=== PATIENT | female | born 1975 | race Caucasian/White ===

== ENCOUNTER → 2017-02-01 | Outpatient (REF) | payer BC ==
[~2017-02-01] MED LIST: ACET65TA; BCP; CORTISSUSP OTIC; CYCL10TA PO; EXCETAB80 PO; HYDR-3713 PO; HYDR25T PO; IBUP200T45 PO; JOLETAB PO; MECL25CH PO; MOTRIN600 PO; OMEP40CA2 PO; PAME50CA PO; TIZA2CAP3 PO; TOPA50TA7 PO; TOPI50TA; VITA20008 PO; ZANT150T
[2017-02-01 12:32] LABS: INR 0.96
[2017-02-01 12:37] LABS: MEAN CORPUSCULAR HEMOGLOBIN 30.6 pg (27.0-33.0); MEAN CORPUSCULAR HGB CONC 33.4 g/dl (32.0-36.5); MEAN CORPUSCULAR VOLUME 91.5 fl (80.0-96.0); RED CELL DISTRIBUTION WIDTH 12.6 % (11.5-14.5); WHITE BLOOD COUNT 8.2 K/mm3 (4.0-10.0)
[2017-02-01 12:53] LABS: ALBUMIN 3.6 GM/DL (3.2-5.2); ALBUMIN/GLOBULIN RATIO 1.16 (1.00-1.93); BILIRUBIN,DIRECT 0.1 MG/DL (0.0-0.2); BILIRUBIN,TOTAL 0.4 MG/DL (0.2-1.0); TOTAL PROTEIN 6.7 GM/DL (6.4-8.2)
== END ==
LOC: M LABDRAW1 11:47
PROVIDERS: ATTEND Physician Assistant Medical
DX: D37.6 Neoplasm of uncertain behavior of liver, gallbladder and bile ducts (principal)

== ENCOUNTER → 2017-02-14 | Outpatient (REF) | payer BC ==
[2017-02-14 12:14] LABS: ALBUMIN 3.8 GM/DL (3.2-5.2); ALBUMIN/GLOBULIN RATIO 1.27 (1.00-1.93); ALKALINE PHOSPHATASE 149 U/L (45-117); ALT/SGPT 70 U/L (12-78); ANION GAP 8 MEQ/L (8-16); AST/SGOT 40 U/L (15-37); BILIRUBIN,TOTAL 0.4 MG/DL (0.2-1.0); BLOOD UREA NITROGEN 12 MG/DL (7-18); CALCIUM LEVEL 9.1 MG/DL (8.5-10.1); CARBON DIOXIDE LEVEL 26 MEQ/L (21-32); CHLORIDE LEVEL 107 MEQ/L (98-107); CREATININE FOR GFR 0.87 MG/DL (0.55-1.02); GLOMERULAR FILTRATION RATE > 60.0 (>58); GLUCOSE, FASTING 116 MG/DL (70-105); POTASSIUM SERUM 4.2 MEQ/L (3.5-5.1); SODIUM LEVEL 141 MEQ/L (136-145); TOTAL PROTEIN 6.8 GM/DL (6.4-8.2)
[2017-02-14 12:26] LABS: FOLATE 14.8 NG/ML; VITAMIN B12 LEVEL 1083 PG/ML
== END ==
LOC: M SFHCPLAZ 08:52
PROVIDERS: ATTEND Nurse Practitioner Family
DX: R74.8 Abnormal levels of other serum enzymes (principal); E55.9 Vitamin D deficiency, unspecified; E53.8 Deficiency of other specified B group vitamins

== ENCOUNTER 2017-07-10 11:34 | Outpatient (CLI) | payer BC, MEDICAID, OTHER ==
[~2017-07-10] VITALS: Ht 157.5 cm; Wt 95.3 kg
[~2017-07-10 11:34] MED LIST changes: +CALCTAB97 PO; +DRIS50002 PO; +HYDR-3363 PO; -HYDR25T PO; +MAGN400C2 PO; +MECL1CHW2 PO; -MECL25CH PO; -TOPA50TA7 PO; +TOPA50TA8 PO; +VITA10002 PO
[2017-07-10] MEDS ORDERED: NS 1,000 ML IV ONE (11:45)
--- NOTE | 2017-07-10 13:14 | ROOR ---
Patient Name: Holly Briceño Procedure Date: 07/10/2017 12:49 PM Date of : 1975 Age: 41 Room: [facility] Gender: Female Note Status: Finalized Procedure: Upper GI endoscopy Indications: Surveillance for malignancy due to personal history of Dinero's esophagus Providers: Lemuel HOLM MD Referring MD: Maria De Jesus Cross NP Requesting Provider: Medicines: Monitored Anesthesia Care Complications: No immediate complications. Procedure: Pre-Anesthesia Assessment: - The heart rate, respiratory rate, oxygen saturations, blood pressure, adequacy of pulmonary ventilation, and response to care were monitored throughout the procedure. The Endoscope was introduced through the mouth, and advanced to the second part of duodenum. The upper GI endoscopy was accomplished without difficulty. The patient tolerated the procedure well. Findings: There were esophageal mucosal changes consistent with short-segment Dinero's esophagus present in the lower third of the esophagus. The maximum longitudinal extent of these mucosal changes was 2 cm in length. Mucosa was biopsied with a cold forceps for histology randomly at intervals of 1 cm from 35 to 37 cm from the incisors. A total of 2 specimen bottles were sent to pathology. The exam of the esophagus was otherwise normal. The entire examined stomach was normal. The examined duodenum was normal. A small hiatal hernia was present. Impression: - Esophageal mucosal changes consistent with short-segment Dinero's esophagus. Biopsied. - Normal stomach with a small hiatal hernia. - Normal examined duodenum. Recommendation: - Use a proton pump inhibitor PO BID indefinitely. - (for barretts esophagus) Lemuel Holm MD Lemuel HOLM MD 07/10/2017 1:14:16 PM This report has been signed electronically. Number of Addenda: 0 Note Initiated On: 07/10/2017 12:49 PM Estimated Blood Loss: Estimated blood loss: none.
[2017-07-10] MEDS ORDERED: LIDOCAINE 2% INJ 100 MG/5 ML SDV (FOR ANES.) As Ordered ONE (13:34)
[2017-07-10] MEDS ORDERED: PROPOFOL 500 MG/50 ML VIAL As Ordered ONE (13:34)
[2017-07-10 13:48] VITALS: BP 120/86
== END 2017-07-10 13:50 | disposition home or self-care (01) ==
LOC: M OPP 11:34
PROVIDERS: ATTEND Internal Medicine Gastroenterology
DX: K22.70 Barrett's esophagus without dysplasia (principal); K44.9 Diaphragmatic hernia without obstruction or gangrene; G40.919 Epilepsy, unspecified, intractable, without status epilepticus

== ENCOUNTER → 2017-09-12 | Outpatient (REF) | payer OTHER ==
[2017-09-12 12:09] LABS: MEAN CORPUSCULAR HEMOGLOBIN 30.1 pg (27.0-33.0); MEAN CORPUSCULAR HGB CONC 33.1 g/dl (32.0-36.5); PLATELET COUNT, AUTOMATED 301 10^3/uL (150-450); RED CELL DISTRIBUTION WIDTH 12.7 % (11.5-14.5); WHITE BLOOD COUNT 8.4 10^3/uL (4.0-10.0)
[2017-09-12 12:16] LABS: ALBUMIN 3.8 GM/DL (3.2-5.2); ALBUMIN/GLOBULIN RATIO 1.31 (1.00-1.93); ALKALINE PHOSPHATASE 130 U/L (45-117); ALT/SGPT 82 U/L (12-78); ANION GAP 8 MEQ/L (8-16); AST/SGOT 33 U/L (7-37); BILIRUBIN,TOTAL 0.3 MG/DL (0.2-1.0); BLOOD UREA NITROGEN 8 MG/DL (7-18); CALCIUM LEVEL 9.3 MG/DL (8.5-10.1); CARBON DIOXIDE LEVEL 25 MEQ/L (21-32); CHLORIDE LEVEL 108 MEQ/L (98-107); CHOLESTEROL LEVEL 245 MG/DL (<200); CREATININE FOR GFR 0.73 MG/DL (0.55-1.02); GLOMERULAR FILTRATION RATE > 60.0 (>58); GLUCOSE, FASTING 109 MG/DL (70-105); POTASSIUM SERUM 4.4 MEQ/L (3.5-5.1); SODIUM LEVEL 141 MEQ/L (136-145); TOTAL PROTEIN 6.7 GM/DL (6.4-8.2); TRIGLYCERIDES LEVEL 199 MG/DL (<150)
[2017-09-12 12:18] LABS: VITAMIN B12 LEVEL 1055 PG/ML
[2017-09-12 12:19] LABS: FOLATE 10.8 NG/ML
[2017-09-12 13:55] LABS: ERYTHROCYTE SEDIMENTATION RATE 6 mm/hr (0-20)
== END ==
LOC: M SFHCPLAZ 10:04
PROVIDERS: ATTEND Nurse Practitioner Family
DX: E53.8 Deficiency of other specified B group vitamins (principal); K21.0 Gastro-esophageal reflux disease with esophagitis; E55.9 Vitamin D deficiency, unspecified; M77.8 Other enthesopathies, not elsewhere classified

== ENCOUNTER 2017-10-16 12:48 | Outpatient (RCR) | payer OTHER | END 2017-10-28 | LOC: M OT 10-25 11:15 | DX: Z51.89 Encounter for other specified aftercare (principal); M77.8 Other enthesopathies, not elsewhere classified | CPT/HCPCS: 97165 ==

== ENCOUNTER → 2017-10-30 | Outpatient (CLI) | payer OTHER | LOC: M LRY 15:54 | DX: M25.552 Pain in left hip (principal) | CPT/HCPCS: 72190 ==

== ENCOUNTER 2018-01-13 16:59 | Emergency (ER) | payer OTHER | END 2018-01-13 18:36 | disposition home or self-care (01) | LOC: M ED 16:59 | DX: M77.11 Lateral epicondylitis, right elbow (principal); M25.721 Osteophyte, right elbow; G43.909 Migraine, unspecified, not intractable, without status migrainosus; R56.9 Unspecified convulsions; Z79.899 Other long term (current) drug therapy | CPT/HCPCS: 73080 ==

== ENCOUNTER → 2018-06-20 | Outpatient (REF) | payer BC ==
[2018-06-20 16:03] LABS: HEMATOCRIT 45.2 % (36.0-47.0); HEMOGLOBIN 15.4 g/dl (12.0-15.5); MEAN CORPUSCULAR HGB CONC 34.1 g/dl (32.0-36.5); MEAN CORPUSCULAR VOLUME 91.1 fl (80.0-96.0); PLATELET COUNT, AUTOMATED 249 10^3/uL (150-450); RED BLOOD COUNT 4.96 10^6/uL (4.00-5.40); RED CELL DISTRIBUTION WIDTH 12.7 % (11.5-14.5); WHITE BLOOD COUNT 12.2 10^3/uL (4.0-10.0)
[2018-06-20 16:16] LABS: ALBUMIN 3.8 GM/DL (3.2-5.2); ALBUMIN/GLOBULIN RATIO 1.12 (1.00-1.93); ALKALINE PHOSPHATASE 122 U/L (45-117); ALT/SGPT 16 U/L (12-78); ANION GAP 6 MEQ/L (8-16); AST/SGOT 7 U/L (7-37); BILIRUBIN,TOTAL 0.2 MG/DL (0.2-1.0); BLOOD UREA NITROGEN 7 MG/DL (7-18); CALCIUM LEVEL 9.2 MG/DL (8.5-10.1); CARBON DIOXIDE LEVEL 28 MEQ/L (21-32); CHLORIDE LEVEL 110 MEQ/L (98-107); CREATININE FOR GFR 0.68 MG/DL (0.55-1.30); GLOMERULAR FILTRATION RATE > 60.0 (>58); GLUCOSE, FASTING 98 MG/DL (70-100); SODIUM LEVEL 144 MEQ/L (136-145); TOTAL PROTEIN 7.2 GM/DL (6.4-8.2)
[2018-06-20 16:23] LABS: TOTAL 25(OH) VITAMIN D 12.3 NG/ML (30.0-100.0)
[2018-06-20 16:24] LABS: FOLATE 6.1 NG/ML; VITAMIN B12 LEVEL 349 PG/ML
== END ==
LOC: M SFHCPLAZ 14:15
DX: R74.8 Abnormal levels of other serum enzymes (principal); E55.9 Vitamin D deficiency, unspecified; E53.8 Deficiency of other specified B group vitamins
CPT/HCPCS: 82746

== ENCOUNTER 2018-10-14 16:36 | Emergency (ER) | payer BC ==
[~2018-10-14] VITALS: Ht 160 cm; Wt 80.5 kg
[~2018-10-14 16:36] MED LIST changes: -DRIS50002 PO; +DRIS50003 PO; +IBUP-1022 PO; +TIZA2CAP PO; -TIZA2CAP3 PO
[2018-10-14] MEDS ORDERED: NS 1,000 ML IV ONE (19:00)
[2018-10-14] MEDS ORDERED: KETOROLAC 30 MG/ML VIAL (J1885) IV ONE (19:00)
[2018-10-14 19:16] LABS: HEMATOCRIT 45.1 % (36.0-47.0); HEMOGLOBIN 15.2 g/dl (12.0-15.5); MEAN CORPUSCULAR HEMOGLOBIN 31.3 pg (27.0-33.0); MEAN CORPUSCULAR HGB CONC 33.7 g/dl (32.0-36.5); PLATELET COUNT, AUTOMATED 281 10^3/uL (150-450); RED BLOOD COUNT 4.85 10^6/uL (4.00-5.40); WHITE BLOOD COUNT 11.8 10^3/uL (4.0-10.0)
[2018-10-14 19:28] LABS: INR 0.9; PROTHROMBIN TIME 12.3 SECONDS (12.1-14.4)
[2018-10-14 19:29] LABS: PARTIAL THROMBOPLASTIN TIME 30.6 SECONDS (25.4-37.6)
[2018-10-14 19:33] LABS: HCG, SERUM QUALITATIVE NEGATIVE (NEGATIVE)
[2018-10-14 19:42] LABS: ALT/SGPT 18 U/L (12-78); BILIRUBIN,DIRECT 0.1 MG/DL (0.0-0.2); BILIRUBIN,TOTAL 0.3 MG/DL (0.2-1.0); BLOOD UREA NITROGEN 12 MG/DL (7-18); CALCIUM LEVEL 9.7 MG/DL (8.5-10.1); CARBON DIOXIDE LEVEL 27 MEQ/L (21-32); CHLORIDE LEVEL 108 MEQ/L (98-107); CK-MB VALUE MASS < 1.0 NG/ML (<3.6); CPK CREATINE PHOSPHOKINASE 77 U/L (26-192); CREATININE FOR GFR 0.76 MG/DL (0.55-1.30); FREE T4 1.05 NG/DL (0.76-1.46); GLOMERULAR FILTRATION RATE > 60.0 (>58); GLUCOSE, FASTING 93 MG/DL (70-100); MAGNESIUM LEVEL 2.1 MG/DL (1.8-2.4); POTASSIUM SERUM 4.1 MEQ/L (3.5-5.1); SODIUM LEVEL 141 MEQ/L (136-145); TROPONIN I < 0.02 NG/ML (< 0.10)
[2018-10-14 19:45] LABS: ATYPICAL LYMPH 19 % (0-5); BASOPHILS 2 % (0-4); EOSINOPHILS 1 % (0-5); LYMPHOCYTES 20 % (16-52); MONOCYTES 8 % (0-8); NEUTROPHILS 50 % (35-75)
[2018-10-14 19:46] LABS: PLATELET ESTIMATE NORMAL (NORMAL)
--- NOTE | 2018-10-14 21:39 | REPVR ---
EXAM: CT Head Without Contrast EXAM DATE/TIME: 10/14/2018 7:49 PM CLINICAL HISTORY: 43 years old, female; Pain; Headache; Headache not specified; Additional info: Headache/smelling odor TECHNIQUE: Axial computed tomography images of the head/brain without contrast. All CT scans at this facility use at least one of these dose optimization techniques: automated exposure control; mA and/or kV adjustment per patient size (includes targeted exams where dose is matched to clinical indication); or iterative reconstruction. COMPARISON: MRI-Brain without Contrast 11/27/2012 2:15 PM FINDINGS: Brain: The white-pérez differentiation is preserved demonstrating no acute territorial type infarct. No acute intracranial hemorrhage is seen. No significant white matter disease is visualized. No intracranial mass effect. Midline shift: There is no midline shift. Ventricles: No ventriculomegaly. Bones/joints: The calvarium demonstrates no evidence for a depressed fracture. Sinuses: Normal as visualized. No acute sinusitis. Mastoid air cells: No mastoid effusion. Soft tissues: Normal. IMPRESSION: No acute intracranial abnormality. Electronically signed by: Tre Bunch On 10/14/2018 21:38:40 PM
[2018-10-14 22:20] VITALS: BP 116/56
== END 2018-10-14 22:28 | disposition home or self-care (01) ==
LOC: M ED 16:36
DX: R51 Headache (principal); K21.9 Gastro-esophageal reflux disease without esophagitis; K22.70 Barrett's esophagus without dysplasia; G40.909 Epilepsy, unspecified, not intractable, without status epilepticus; Z79.899 Other long term (current) drug therapy; F17.210 Nicotine dependence, cigarettes, uncomplicated
CPT/HCPCS: 70450; 80048; 80076; 81001; 82375; 82550; 82553; 83735; 84439; 84443; 84484; 84703; 85025; 85610; 85730; 96374; 99284; J1885

== ENCOUNTER 2018-10-15 12:00 | Outpatient (RCR) | payer BC | END 2018-10-28 | LOC: M PT 12:00 | PROVIDERS: ATTEND Psychiatry & Neurology Neurology | DX: Z51.89 Encounter for other specified aftercare (principal); G44.229 Chronic tension-type headache, not intractable; R51 Headache ==

== ENCOUNTER 2019-01-01 11:51 | Emergency (ER) | payer BC, SELFPAY ==
[~2019-01-01] VITALS: Ht 157.5 cm; Wt 78.5 kg
[2019-01-01] MEDS ORDERED: KETOROLAC 30 MG/ML VIAL (J1885) IV ONE (12:45)
[2019-01-01] MEDS ORDERED: NS 1,000 ML IV ONE (12:45)
[2019-01-01 13:27] LABS: BASO # 0.1 10^3/uL (0.0-0.2); BASO % 0.5 % (0.0-1.0); EOS # 0.1 10^3/uL (0.0-0.50); EOS % 0.7 % (0.0-3.0); HEMATOCRIT 47.2 % (36.0-47.0); HEMOGLOBIN 15.8 g/dl (12.0-15.5); LYMPH % 28.3 % (24.0-44.0); MEAN CORPUSCULAR HEMOGLOBIN 30.6 pg (27.0-33.0); MEAN CORPUSCULAR HGB CONC 33.5 g/dl (32.0-36.5); MEAN CORPUSCULAR VOLUME 91.3 fl (80.0-96.0); MONO # 0.8 10^3/uL (0.0-0.8); MONO % 7.9 % (0.0-5.0); NEUTROPHILS # 6.7 10^3/uL (1.8-7.7); NEUTROPHILS % 62.3 % (36.0-66.0); PLATELET COUNT, AUTOMATED 264 10^3/uL (150-450); RED BLOOD COUNT 5.17 10^6/uL (4.00-5.40); WHITE BLOOD COUNT 10.7 10^3/uL (4.0-10.0)
[2019-01-01 13:56] LABS: ALT/SGPT 14 U/L (12-78); BILIRUBIN,DIRECT < 0.1 MG/DL (0.0-0.2); BILIRUBIN,TOTAL 0.3 MG/DL (0.2-1.0); BLOOD UREA NITROGEN 14 MG/DL (7-18); CALCIUM LEVEL 8.9 MG/DL (8.5-10.1); CARBON DIOXIDE LEVEL 24 MEQ/L (21-32); CHLORIDE LEVEL 110 MEQ/L (98-107); CREATININE FOR GFR 0.66 MG/DL (0.55-1.30); GLOMERULAR FILTRATION RATE > 60.0 (>58); GLUCOSE, FASTING 78 MG/DL (70-100); LIPASE 111 U/L (73-393); POTASSIUM SERUM 3.6 MEQ/L (3.5-5.1); SODIUM LEVEL 139 MEQ/L (136-145); TOTAL PROTEIN 7.4 GM/DL (6.4-8.2)
--- NOTE | 2019-01-01 13:57 | REP ---
CT ABDOMEN AND PELVIS WITHOUT CONTRAST: CT abdomen and pelvis performed without oral or IV contrast. Sagittal and coronal reconstruction images are performed. Visualized lung bases demonstrate no evidence of acute infiltrate. In the right lobe of the liver just above the level of the gallbladder there is a suggestion of a liver mass which was seen on prior study of 08/23/2016, as well as on other prior studies. This appears to possibly have decreased in size possibly representing an adenoma. Spleen, adrenals, and pancreas are unremarkable. There is no renal, ureteral or bladder calculus. There is on hydroureteronephrosis. There is again an apparent cyst in the medial left kidney mid aspect. There is no abdominal aortic aneurysm. There is no adenopathy. There is no free air or free fluid. No bowel wall thickening is seen. There is no evidence of appendicitis. No pelvic mass is seen. Urinary bladder is not optimally distended and not well evaluated. IMPRESSION: No renal or ureteral calculus and no hydroureteronephrosis. Left renal cyst. Liver mass appears to have decreased in size as discussed above. This was seen on prior studies. This probably represents an adenoma which is decreasing in size. Electronically Signed by Sal Matthew MD 01/01/2019 11:26 P
[2019-01-01 15:36] VITALS: BP 129/60
--- NOTE | 2019-01-01 15:46 | REP ---
THORACIC SPINE: AP and lateral views of thoracic spine performed. Comparison is made with prior study of 02/04/2009. There is mild loss of height of T5 and T6 vertebral bodies unchanged. No new compression fracture is seen. There is no malalignment. I do not see significant disc space narrowing. There is slight curvature toward the right. The posterior elements appear intact. IMPRESSION: Mild loss of height of T5 and T6 unchanged since 2008. No new fracture or dislocation. Electronically Signed by Sal Matthew MD 01/01/2019 11:37 P
--- NOTE | 2019-01-03 15:10 | ED PDOC ---
Post-Departure Follow-Up marilee recio faxed formal reprt of ct abd/p for fu Benson Haddad MD Jan 03, 2019 15:10
== END 2019-01-01 16:09 | disposition home or self-care (01) ==
LOC: M ED 11:51
DX: G89.29 Other chronic pain (principal); M54.6 Pain in thoracic spine; Z79.899 Other long term (current) drug therapy
CPT/HCPCS: 72072; 74176; 80048; 80076; 81001; 83690; 85025; 96374; 99284; J1885

== ENCOUNTER → 2019-04-30 | Outpatient (REF) | payer BC ==
[~2019-04-30] MED LIST changes: +CYAN100049 PO; +MECL1CHW PO; -MECL1CHW2 PO; -VITA10002 PO
[2019-04-30 10:50] LABS: ALBUMIN 3.6 GM/DL (3.2-5.2); ALT/SGPT 17 U/L (12-78); BILIRUBIN,TOTAL 0.2 MG/DL (0.2-1.0); BLOOD UREA NITROGEN 15 MG/DL (7-18); CALCIUM LEVEL 8.6 MG/DL (8.5-10.1); CARBON DIOXIDE LEVEL 25 MEQ/L (21-32); CHLORIDE LEVEL 110 MEQ/L (98-107); CHOLESTEROL LEVEL 226 MG/DL (<200); CREATININE FOR GFR 0.72 MG/DL (0.55-1.30); FREE T4 0.84 NG/DL (0.76-1.46); GLOMERULAR FILTRATION RATE > 60.0 (>58); GLUCOSE, FASTING 97 MG/DL (70-100); HDL CHOLESTEROL 42 MG/DL (>40); LDL CHOLESTEROL 125 MG/DL (<100); NON-HDL-C 184 MG/DL; POTASSIUM SERUM 4.5 MEQ/L (3.5-5.1); SODIUM LEVEL 140 MEQ/L (136-145); TOTAL PROTEIN 6.8 GM/DL (6.4-8.2); TRIGLYCERIDES LEVEL 293 MG/DL (<150)
== END ==
LOC: M SFHCPLAZ 08:07
PROVIDERS: ATTEND Nurse Practitioner Family
DX: E78.2 Mixed hyperlipidemia (principal)

== ENCOUNTER → 2019-05-07 | Outpatient (REF) | payer BC ==
[2019-05-07 11:55] LABS: BASO # 0.1 10^3/uL (0.0-0.2); BASO % 0.7 % (0.0-1.0); EOS # 0.1 10^3/uL (0.0-0.50); EOS % 0.9 % (0.0-3.0); HEMATOCRIT 47.9 % (36.0-47.0); HEMOGLOBIN 16.2 g/dl (12.0-15.5); LYMPH % 33.7 % (24.0-44.0); MEAN CORPUSCULAR HGB CONC 33.8 g/dl (32.0-36.5); MEAN CORPUSCULAR VOLUME 94.5 fl (80.0-96.0); MONO # 0.6 10^3/uL (0.0-0.8); MONO % 6.9 % (0.0-5.0); NEUTROPHILS # 5.1 10^3/uL (1.8-7.7); NEUTROPHILS % 57.4 % (36.0-66.0); PLATELET COUNT, AUTOMATED 234 10^3/uL (150-450); RED BLOOD COUNT 5.07 10^6/uL (4.00-5.40); WHITE BLOOD COUNT 8.9 10^3/uL (4.0-10.0)
[2019-05-07 12:40] LABS: FOLATE 7.6 NG/ML; TOTAL 25(OH) VITAMIN D 36.4 NG/ML (30.0-100.0); VITAMIN B12 LEVEL 274 PG/ML
[2019-05-07 12:46] LABS: ERYTHROCYTE SEDIMENTATION RATE 3 mm/hr (0-20)
[2019-05-09 00:06] LABS: ANA (HEP2) Negative (.); Lyme Disease IgG/IgM Antibodie <0.91 ISR (0.00-0.90); Lyme Disease IgM Ab Quantitati <0.80 index (0.00-0.79)
== END ==
LOC: M SFHCPLAZ 10:23
PROVIDERS: ATTEND Nurse Practitioner Family
DX: G62.9 Polyneuropathy, unspecified (principal); E55.9 Vitamin D deficiency, unspecified

== ENCOUNTER 2019-06-30 15:11 | Emergency (ER) | payer BC ==
[~2019-06-30] VITALS: Ht 157.5 cm; Wt 79.7 kg
[2019-06-30] MEDS ORDERED: ROPI1TAB (15:31)
[2019-06-30] MEDS ORDERED: GABA-843 (15:31)
[2019-06-30] MEDS ORDERED: TIZA2TA (15:31)
[2019-06-30] MEDS ORDERED: METOCLOPRAMIDE INJ 10MG/2ML VIAL (J2765) IV ONE (16:45)
[2019-06-30] MEDS ORDERED: diphenhydrAMINE INJ 50MG/ML VIAL (J1200) IV ONE (16:45)
[2019-06-30] MEDS ORDERED: NS 1,000 ML IV ONE (16:45)
[2019-06-30] MEDS ORDERED: KETOROLAC 30 MG/ML VIAL (J1885) IV ONE (16:45)
[2019-06-30 18:12] LABS: BASO # 0.1 10^3/uL (0.0-0.2); BASO % 0.4 % (0.0-1.0); EOS # 0.1 10^3/uL (0.0-0.5); EOS % 0.5 % (0.0-3.0); HEMATOCRIT 43.5 % (36.0-47.0); HEMOGLOBIN 14.6 g/dl (12.0-15.5); LYMPH # 3.3 10^3/uL (1.5-5.0); MEAN CORPUSCULAR HEMOGLOBIN 31.7 pg (27.0-33.0); MEAN CORPUSCULAR HGB CONC 33.6 g/dl (32.0-36.5); MEAN CORPUSCULAR VOLUME 94.4 fl (80.0-96.0); MONO # 0.6 10^3/uL (0.0-0.8); MONO % 5.8 % (0.0-5.0); NEUTROPHILS % 62.9 % (36.0-66.0); PLATELET COUNT, AUTOMATED 230 10^3/uL (150-450); RED BLOOD COUNT 4.61 10^6/uL (4.00-5.40); WHITE BLOOD COUNT 11.1 10^3/uL (4.0-10.0)
[2019-06-30 18:39] LABS: BLOOD UREA NITROGEN 11 MG/DL (7-18); CARBON DIOXIDE LEVEL 25 MEQ/L (21-32); CHLORIDE LEVEL 113 MEQ/L (98-107); GLOMERULAR FILTRATION RATE > 60.0 (>58); GLUCOSE, FASTING 84 MG/DL (70-100); POTASSIUM SERUM 3.9 MEQ/L (3.5-5.1); SODIUM LEVEL 143 MEQ/L (136-145)
[2019-06-30 19:52] VITALS: BP 126/67
--- NOTE | 2019-07-01 00:50 | ECGEPIP ---
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
[2019-07-03 00:06] LABS: Lyme Disease IgG/IgM Antibodie <0.91 ISR (0.00-0.90); Lyme Disease IgM Ab Quantitati <0.80 index (0.00-0.79)
== END 2019-06-30 20:42 | disposition home or self-care (01) ==
LOC: M ED 15:11
DX: G43.909 Migraine, unspecified, not intractable, without status migrainosus (principal); G40.909 Epilepsy, unspecified, not intractable, without status epilepticus; G47.30 Sleep apnea, unspecified; K22.70 Barrett's esophagus without dysplasia; Z79.899 Other long term (current) drug therapy; F17.210 Nicotine dependence, cigarettes, uncomplicated
CPT/HCPCS: 36415; 80048; 85025; 86617; 93005; 96361; 96374; 96375; 99284; J1200; J1885; J2765

== ENCOUNTER → 2019-07-12 | Outpatient (CLI) | payer BC ==
[~2019-07-12] MED LIST changes: +GABA-843; +ROPI1TAB; +TIZA2TA
[2019-07-12 13:10] LABS: BASO # 0.1 10^3/uL (0.0-0.2); BASO % 0.8 % (0.0-1.0); EOS # 0.1 10^3/uL (0.0-0.5); EOS % 1.5 % (0.0-3.0); HEMATOCRIT 44.1 % (36.0-47.0); HEMOGLOBIN 14.9 g/dl (12.0-15.5); LYMPH # 2.6 10^3/uL (1.5-5.0); LYMPH % 33.2 % (24.0-44.0); MEAN CORPUSCULAR HEMOGLOBIN 30.8 pg (27.0-33.0); MEAN CORPUSCULAR HGB CONC 33.8 g/dl (32.0-36.5); MEAN CORPUSCULAR VOLUME 91.1 fl (80.0-96.0); MONO # 0.6 10^3/uL (0.0-0.8); MONO % 7.4 % (0.0-5.0); NEUTROPHILS # 4.4 10^3/uL (1.5-8.5); NEUTROPHILS % 56.8 % (36.0-66.0); PLATELET COUNT, AUTOMATED 239 10^3/uL (150-450); RED BLOOD COUNT 4.84 10^6/uL (4.00-5.40); WHITE BLOOD COUNT 7.8 10^3/uL (4.0-10.0)
[2019-07-12 13:20] LABS: INR 1.05; PROTHROMBIN TIME 13.4 SECONDS (11.8-14.0)
[2019-07-12 13:34] LABS: BLOOD UREA NITROGEN 9 MG/DL (7-18); C REACTIVE PROTEIN QUANTITATIV 0.35 MG/DL (0.00-0.30); CALCIUM LEVEL 8.8 MG/DL (8.5-10.1); CARBON DIOXIDE LEVEL 25 MEQ/L (21-32); CHLORIDE LEVEL 111 MEQ/L (98-107); GLOMERULAR FILTRATION RATE > 60.0 (>58); GLUCOSE, FASTING 89 MG/DL (70-100); POTASSIUM SERUM 3.9 MEQ/L (3.5-5.1); SODIUM LEVEL 141 MEQ/L (136-145); TOTAL PROTEIN 6.5 GM/DL (6.4-8.2)
[2019-07-12 14:04] LABS: ERYTHROCYTE SEDIMENTATION RATE 2 mm/hr (0-20)
[2019-07-14 09:59] LABS: TOTAL 25(OH) VITAMIN D 39.5 NG/ML (30.0-100.0)
[2019-07-15 11:02] LABS: ALBUMIN % 64.6 % (55.8-66.1); ALPHA-1-GLOBULIN % 4.4 % (2.9-4.9); ALPHA-1-GLOBULINS 0.29 GM/DL (0.17-0.41); ALPHA-2-GLOBULINS 0.72 GM/DL (0.42-0.99); BETA-1-GLOBULINS 0.34 GM/DL (0.28-0.60); BETA-1-GLOBULINS % 5.3 % (4.7-7.2); BETA-2-GLOBULINS 0.29 GM/DL (0.19-0.55)
[2019-07-15 11:03] LABS: BETA-2-GLOBULINS % 4.4 % (3.2-6.5); GAMMA GLOBULIN % 10.3 % (11.1-18.8); GAMMA GLOBULINS 0.67 GM/DL (0.65-1.58)
[2019-07-17 08:06] LABS: ANGIOTENSIN 1 CONVERTING ENZYM 48 U/L (14-82); ANTINUCLEAR ANTIBODIES DIRECT Negative (Negative); Lyme Disease IgG/IgM Antibodie <0.91 ISR (0.00-0.90); Lyme Disease IgM Ab Quantitati <0.80 index (0.00-0.79)
== END ==
LOC: M LAB 11:53
PROVIDERS: ATTEND Psychiatry & Neurology Neurology
DX: G37.9 Demyelinating disease of central nervous system, unspecified (principal)

== ENCOUNTER → 2019-07-14 | Outpatient (CLI) | payer BC ==
[~2019-07-14] MED LIST changes: +AUGM875T28 PO; -GABA-843; +GABA-843 PO; +KETO10TAB PO; -OMEP40CA2 PO; +OMEP40CA97 PO; -ROPI1TAB; +ROPI1TAB PO; -TIZA2TA; +TIZA2TA PO
== END ==
LOC: M LAB 06:21
PROVIDERS: ATTEND Psychiatry & Neurology Neurology
DX: G37.9 Demyelinating disease of central nervous system, unspecified (principal)

== ENCOUNTER 2019-08-24 15:34 | Emergency (ER) | payer BC ==
[~2019-08-24] VITALS: Ht 157.5 cm; Wt 79.2 kg
[~2019-08-24 15:34] MED LIST changes: -AUGM875T28 PO; -KETO10TAB PO; +TIZA2TA; -TIZA2TA PO
[2019-08-24] MEDS ORDERED: KETO10TAB PO (15:45)
[2019-08-24] MEDS ORDERED: NS 1,000 ML IV ONE (16:15)
[2019-08-24 16:39] LABS: BASO # 0.1 10^3/uL (0.0-0.2); BASO % 0.4 % (0.0-1.0); EOS # 0.2 10^3/uL (0.0-0.5); EOS % 1.6 % (0.0-3.0); HEMATOCRIT 42.9 % (36.0-47.0); HEMOGLOBIN 14.5 g/dl (12.0-15.5); LYMPH # 2.8 10^3/uL (1.5-5.0); LYMPH % 21.3 % (24.0-44.0); MEAN CORPUSCULAR HEMOGLOBIN 31.7 pg (27.0-33.0); MEAN CORPUSCULAR HGB CONC 33.8 g/dl (32.0-36.5); MEAN CORPUSCULAR VOLUME 93.7 fl (80.0-96.0); MONO % 7.8 % (0.0-5.0); NEUTROPHILS % 68.4 % (36.0-66.0); PLATELET COUNT, AUTOMATED 237 10^3/uL (150-450); RED BLOOD COUNT 4.58 10^6/uL (4.00-5.40); WHITE BLOOD COUNT 13.2 10^3/uL (4.0-10.0)
[2019-08-24 17:10] LABS: ALBUMIN 3.6 GM/DL (3.2-5.2); ALT/SGPT 18 U/L (12-78); BILIRUBIN,DIRECT < 0.1 MG/DL (0.0-0.2); BILIRUBIN,TOTAL 0.3 MG/DL (0.2-1.0); LIPASE 111 U/L (73-393)
[2019-08-24] MEDS ORDERED: KETOROLAC 30 MG/ML VIAL (J1885) IV ONE (18:30)
--- NOTE | 2019-08-24 18:45 | REPVR ---
PROCEDURE INFORMATION: Exam: US Abdomen Limited, Right Upper Quadrant Exam date and time: 08/24/2019 4:59 PM Clinical history: 44 years old, female; Abdominal pain; Additional info: Ruq pain with + rivera's TECHNIQUE: Imaging protocol: Real-time ultrasound of the abdomen with image documentation. Examination was focused on the right upper quadrant. COMPARISON: GALLBLADDER US 03/04/2016 7:44 PM FINDINGS: Liver: The right lobe of the liver measures 18.2 CM in length. There is marked increased echogenicity and irregularity of the echo pattern of the liver and similar to the examination of 2016. On the examination of 2016 there was a focal 4 CM area that appeared hypoechoic and possibly focal fatty sparing. This is difficult to identify on the current examination. It would be helpful to have a CT scan of the liver with dynamic contrast enhancement for further evaluation. Gallbladder: There is a 1.6 CM floating calcified stone within the fundus of gallbladder. The wall of the gallbladder measures approximately 3 mm and there is tenderness. This could be the result of cholecystitis and suggest correlation with HIDA scan. Common bile duct: The common bile duct is normal in size measuring 3 mm. Pancreas: The pancreas is almost completely obscured by bowel gas and cannot be evaluated. Right kidney: The right kidney measures 11.6 CM in length and there is no evidence of hydronephrosis. IMPRESSION: 1. Marked increased and irregularity of the echo pattern of the liver probably moderate fatty infiltration. Previous hypoechoic area not distinctly seen. Perhaps a CT scan with dynamic contrast would be helpful. 2. 1.6 CM floating stone distal gallbladder. Mild thickening of the gallbladder wall and tenderness could be the result of cholecystitis. Suggest HIDA scan. Electronically signed by: Ryder Marinelli On 08/24/2019 18:45:18 PM
[2019-08-24] MEDS ORDERED: ISOVUE-370 76% 100ML VIAL (Q9967) As Ordered ONE (18:56)
--- NOTE | 2019-08-24 19:39 | REPVR ---
PROCEDURE INFORMATION: Exam: CT Abdomen And Pelvis With Contrast Exam date and time: 08/24/2019 7:03 PM Clinical history: 44 years old, female; Abdominal pain; Localized; Right upper quadrant (ruq); Additional info: Ruq abd pain, ? fatty liver and cholecystitis on US TECHNIQUE: Imaging protocol: Computed tomography of the abdomen and pelvis with intravenous contrast. Radiation optimization: All CT scans at this facility use at least one of these dose optimization techniques: automated exposure control; mA and/or kV adjustment per patient size (includes targeted exams where dose is matched to clinical indication); or iterative reconstruction. Contrast material: ISOVUE 370; Contrast volume: 100 ml; Contrast route: IV; COMPARISON: CT ABD PELVIS W/O CONTRAST 01/01/2019 1:13 PM FINDINGS: Lungs: Clear lung bases. Liver: 2.2 CM lesion of the left lobe of the liver and this is markedly decreased in size when compared with the CT examination 04/25/2016. This is probably a hemangioma. Gallbladder and bile ducts: Normal common bile duct. 1.6 CM calcified stone floating in the distal portion of the gallbladder. There is thickening of the gallbladder wall with a hazy appearance to the margins and consistent with acute changes and cholecystitis. There is some inflammation in the surrounding mesentery is well The common bile duct is normal in size. Pancreas: Normal pancreas. Spleen: Normal spleen. Adrenals: Normal adrenal glands. Kidneys and ureters: There is enhancement of both kidneys. Stomach and bowel: Unremarkable. No obstruction. No mucosal thickening. Appendix: The cecum is in the right pelvis and the appendix appears within the range of normal. Intraperitoneal space: No evidence of pneumoperitoneum. Small amount of free fluid in the pelvis. Vasculature: There is opacification of the SMV and SMA. The aorta is normal in size. Lymph nodes: Unremarkable. No enlarged lymph nodes. Bladder: Normal urinary bladder. Reproductive: There is an enhancing collapsing cyst of the right ovary. Normal sized left ovary. Normal size uterus. Bones/joints: Unremarkable. No acute fracture. Soft tissues: Normal-appearing soft tissues. IMPRESSION: There is thickening of the gallbladder wall with hazy margins and some mesenteric inflammation all consistent with changes of acute cholecystitis. 1.6 CM floating gallstone in the distal portion of the gallbladder. Electronically signed by: Ryder Marinelli On 08/24/2019 19:38:48 PM
[2019-08-24] MEDS ORDERED: AUGMENTIN 875 MG TAB PO ONE (20:30)
[2019-08-24] MEDS ORDERED: AUGM875T28 PO (20:33)
[2019-08-24 21:04] VITALS: BP 137/62
--- NOTE | 2019-08-25 06:49 | ED PDOC ---
Post-Departure Follow-Up dr leon and jose recio faxed formal report of gb us and ct abd/p for fu Benson Haddad MD Aug 25, 2019 06:49
--- NOTE | 2019-08-25 20:09 | ECGEPIP ---
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
== END 2019-08-24 21:05 | disposition home or self-care (01) ==
LOC: M ED 15:34
DX: K81.0 Acute cholecystitis (principal); I49.9 Cardiac arrhythmia, unspecified; K21.9 Gastro-esophageal reflux disease without esophagitis; G43.909 Migraine, unspecified, not intractable, without status migrainosus; R56.9 Unspecified convulsions; F17.200 Nicotine dependence, unspecified, uncomplicated
CPT/HCPCS: 74177; 76705; 80047; 80076; 81001; 83605; 83690; 85025; 93005; 96374; 99284; J1885; Q9967

== ENCOUNTER 2019-11-07 11:29 | Day surgery (SDC) | payer BC, MEDICAID, SELFPAY ==
[~2019-11-07] VITALS: Ht 157.5 cm; Wt 77.1 kg
[~2019-11-07 11:29] MED LIST changes: +ACETAMINOPHEN 1000MG 100ML IV BTL (OFIRMEV) (J0131 PER 10MG) As Ordered ONE; +AUGM875T28 PO; +KETO10TAB PO; +KETOROLAC 60 MG/2 ML VIAL (J1885) As Ordered ONE; +LIDOCAINE 2% INJ 100 MG/5 ML SDV (FOR ANES.) As Ordered ONE; +LR 1,000 ML IV ONE; +MIDAZOLAM INJ 2 MG/2 ML VIAL (J2250) As Ordered ONE; +ONDANSETRON 4MG/2ML VIAL (J2405) As Ordered ONE; +ROCURONIUM BROMIDE 50 MG/5 ML VIAL As Ordered ONE; +SUGAMMADEX SODIUM 500 MG/5 ML VIAL (BRIDION) As Ordered ONE; -TIZA2TA; +TIZA2TA PO; +dexameTHASONE 4 MG/ML 1ML VIAL (J1100) As Ordered ONE; +fentaNYL 100 MCG/2 ML INJECTION (J3010) As Ordered ONE; +propofoL 200 MG/20 ML VIAL As Ordered ONE
[2019-11-07] MEDS ORDERED: BUPIVACAINE/EPIN 0.25% 30 ML VIAL As Ordered ONE (14:24)
[2019-11-07] MEDS ORDERED: fentaNYL 100 MCG/2 ML INJECTION (J3010) As Ordered ONE ×2 (15:10→15:25)
[2019-11-07] MEDS ORDERED: propofoL 200 MG/20 ML VIAL As Ordered ONE (15:31)
[2019-11-07] MEDS ORDERED: fentaNYL 100 MCG/2 ML INJECTION (J3010) IV PRN (16:30)
[2019-11-07] MEDS ORDERED: LR 1,000 ML IV SCH (16:30)
[2019-11-07] MEDS ORDERED: PERCOCET 5MG/325MG TAB PO PRN (16:30)
[2019-11-07] MEDS ORDERED: ONDANSETRON 4MG/2ML VIAL (J2405) IV PRN (16:30)
[2019-11-07] MEDS ORDERED: NORCO, ANEXSIA 5/325MG TABLET (HYDROcodone/ACETAMINOPHEN) PO PRN (16:30)
[2019-11-07] MEDS ORDERED: HYDROMORPHONE HCL 0.5 MG/ 0.5 ML SYRINGE (J1170 PER 1) IV PRN (16:30)
[2019-11-07 18:15] VITALS: BP 141/69
--- NOTE | 2019-11-07 22:40 | RO ---
DATE OF PROCEDURE: 11/07/2019 PREOPERATIVE DIAGNOSIS: Symptomatic cholelithiasis. POSTOPERATIVE DIAGNOSIS: Symptomatic cholelithiasis. PROCEDURE: Robotic cholecystectomy. SURGEON: Sal Israel DO VACUUM TECHNICIAN: None. ANESTHESIA: General. ESTIMATED BLOOD LOSS: 5 mL COMPLICATIONS: None. INDICATIONS FOR PROCEDURE The patient is a 44-year-old female who presents with right upper quadrant abdominal pain, found to have symptomatic cholelithiasis. Recommendation was to proceed with robotic cholecystectomy. Risks and benefits of the procedure not limited but including bleeding, infection, hernia formation, damage to surrounding structure, need for further surgery were discussed in detail with the patient and informed consent was obtained and procedure was planned. DESCRIPTION OF PROCEDURE: The patient brought back to operating room seven. After sufficient sedation the abdomen was sterilely prepped and draped. Next, a time-out was done to confirm proper patient and proper procedure. Following that, an 8 mm incision was made in left lower quadrant. A Veress needle inserted and the abdomen was inflated to 50 mmHg. Veress needle was then removed and an 8 mm robotic port was used to gain access to the abdomen. Once the abdomen was entered, three more ports were placed along the upper abdomen. The robot was then connected to the ports. Next, from the console the gallbladder was very distended. Upon elevating it up towards the right upper quadrant it perforated revealing hydrops of the gallbladder. A large amount of clear fluid was drained. Gallbladder was then able to be grasped easily, was elevated up towards the right upper quadrant. The cystic duct and cystic artery were carefully dissected free using combination of blunt and sharp dissection. They were both then doubly clipped and cut. Once that was completed, the gallbladder was dissected free posteriorly from the gallbladder fossa. Posteriorly in the gallbladder fossa the posterior branch of the artery was also encountered. Due to risk of bleeding I was unable to dissected it freely to get a clip around it, but I was able to cauterize it with the bipolar and stopped immediately. The rest of the gallbladder was then dissected free from the gallbladder fossa. Once the gallbladder was removed it was placed in a 5 mm EndoCatch bag and brought out through the most right-sided port site. Once that was completed, the fascia at that port site on the right side was closed with running #2-0 V-Loc suture. The robot was then undocked. The abdomen in the right upper quadrant was aspirated to remove all the fluid that had leaked out along with some of the blood from the bleeding area in the gallbladder fossa. Once that was done, 3 grams of Yolie was placed in the gallbladder fossa. There were no signs of any more bleeding. The abdomen was then desufflated. Ports were removed. Skin incisions closed with #4-0 Vicryl subcuticular sutures. The abdomen cleaned and dried. Steri-Strips, 4x4 and tape were applied thus ending the procedure.
== END 2019-11-07 18:22 | disposition home or self-care (01) ==
LOC: M SDC 11:29
PROVIDERS: ATTEND Surgery
DX: K80.10 Calculus of gallbladder with chronic cholecystitis without obstruction (principal); K21.9 Gastro-esophageal reflux disease without esophagitis; G40.401 Other generalized epilepsy and epileptic syndromes, not intractable, with status epilepticus; E78.49 Other hyperlipidemia; E55.9 Vitamin D deficiency, unspecified; G62.9 Polyneuropathy, unspecified; L80 Vitiligo; Z79.899 Other long term (current) drug therapy; Z87.891 Personal history of nicotine dependence
CPT/HCPCS: 47562; 81025; 88304; J0131; J1100; J1885; J2250; J2405; J3010

== ENCOUNTER 2020-01-04 20:31 | Emergency (ER) | payer MEDICAID, OTHER ==
[~2020-01-04] VITALS: Ht 157.5 cm; Wt 77.3 kg
[~2020-01-04 20:31] MED LIST changes: -ACETAMINOPHEN 1000MG 100ML IV BTL (OFIRMEV) (J0131 PER 10MG) As Ordered ONE; -KETOROLAC 60 MG/2 ML VIAL (J1885) As Ordered ONE; -LIDOCAINE 2% INJ 100 MG/5 ML SDV (FOR ANES.) As Ordered ONE; -LR 1,000 ML IV ONE; -MIDAZOLAM INJ 2 MG/2 ML VIAL (J2250) As Ordered ONE; -ONDANSETRON 4MG/2ML VIAL (J2405) As Ordered ONE; -ROCURONIUM BROMIDE 50 MG/5 ML VIAL As Ordered ONE; -ROPI1TAB PO; +ROPI1TAB3 PO; -SUGAMMADEX SODIUM 500 MG/5 ML VIAL (BRIDION) As Ordered ONE; -dexameTHASONE 4 MG/ML 1ML VIAL (J1100) As Ordered ONE; -fentaNYL 100 MCG/2 ML INJECTION (J3010) As Ordered ONE; -propofoL 200 MG/20 ML VIAL As Ordered ONE
[2020-01-04] MEDS ORDERED: MECLIZINE 25 MG TABLET PO ONE (21:30)
[2020-01-04] MEDS ORDERED: MECL1TAB31 PO (22:44)
[2020-01-04 22:49] VITALS: BP 132/61
== END 2020-01-04 22:57 | disposition home or self-care (01) ==
LOC: M ED 20:31
DX: R42 Dizziness and giddiness (principal); G40.909 Epilepsy, unspecified, not intractable, without status epilepticus; G43.909 Migraine, unspecified, not intractable, without status migrainosus; K22.70 Barrett's esophagus without dysplasia; K21.9 Gastro-esophageal reflux disease without esophagitis; Z79.899 Other long term (current) drug therapy; F17.210 Nicotine dependence, cigarettes, uncomplicated

== ENCOUNTER → 2020-01-05 | Outpatient (REF) | payer OTHER ==
[~2020-01-05] MED LIST changes: +MECL1TAB31 PO
[2020-01-05 10:21] LABS: ALBUMIN 3.5 GM/DL (3.2-5.2); ALT/SGPT 56 U/L (12-78); BILIRUBIN,TOTAL 0.3 MG/DL (0.2-1.0); BLOOD UREA NITROGEN 11 MG/DL (7-18); CALCIUM LEVEL 8.4 MG/DL (8.5-10.1); CARBON DIOXIDE LEVEL 26 MEQ/L (21-32); CHLORIDE LEVEL 111 MEQ/L (98-107); CHOLESTEROL LEVEL 206 MG/DL (<200); CHOLESTEROL RISK RATIO 6.242 (<5); GLOMERULAR FILTRATION RATE > 60.0 (>58); GLUCOSE, FASTING 104 MG/DL (70-100); HDL CHOLESTEROL 33 MG/DL (>40); LDL CHOLESTEROL 126 MG/DL (<100); NON-HDL-C 173 MG/DL; POTASSIUM SERUM 4.2 MEQ/L (3.5-5.1); SODIUM LEVEL 142 MEQ/L (136-145); TOTAL PROTEIN 6.2 GM/DL (6.4-8.2); TRIGLYCERIDES LEVEL 233 MG/DL (<150)
[2020-01-05 10:30] LABS: VITAMIN B12 LEVEL 652 PG/ML
[2020-01-05 10:32] LABS: FOLATE 10.2 NG/ML
== END ==
LOC: M SFHCPLAZ 08:28
PROVIDERS: ATTEND Nurse Practitioner Family
DX: E78.2 Mixed hyperlipidemia (principal); E55.9 Vitamin D deficiency, unspecified; E53.8 Deficiency of other specified B group vitamins

== ENCOUNTER → 2020-02-20 | Outpatient (CLI) | payer OTHER ==
[~2020-02-20] MED LIST changes: +CYCL-707 PO; -CYCL10TA PO; +PROHANCE 279.3MG/ML 15ML VIAL As Ordered ONE; +PROHANCE 279.3MG/ML 5ML VIAL As Ordered ONE
--- NOTE | 2020-02-20 18:49 | REPVR ---
PROCEDURE INFORMATION: Exam: MR Head Without and With Contrast Exam date and time: 02/20/2020 2:43 PM Age: 44 years old Clinical indication: Condition or disease; Multiple sclerosis; Patient HX: Ms TECHNIQUE: Imaging protocol: MR of the head without and with intravenous contrast. 3D rendering: MIP and/or 3D reconstructed images were created by the technologist. Contrast material: PROHANCE; Contrast volume: 17 ml; Contrast route: 22; COMPARISON: MRI-Brain without Contrast 05/07/2019 7:25 PM FINDINGS: Ventricles demonstrate normal size and configuration. Major vascular flow voids at the skull base are preserved. No extra-axial fluid collection. No midline shift or intracranial mass effect. Minimal nonspecific white matter gliosis, stable. No cerebral edema. Punctate focus of mildly increased diffusion-weighted signal involving the left parietal lobe. Equivocal signal alteration on ADC map. No pathologic intracranial enhancement. Visualized paranasal sinuses and mastoid air cells are clear. IMPRESSION: 1. Punctate focus of mildly increased diffusion-weighted signal involving the left parietal lobe with equivocal signal alteration on ADC map, questionable for tiny acute/subacute ischemic infarct. 2. Stable minimal nonspecific white matter gliosis. Electronically signed by: Abhi Bean On 02/20/2020 18:48:51 PM
== END ==
LOC: M RAD 13:26
PROVIDERS: ATTEND Psychiatry & Neurology Neurology
DX: G93.89 Other specified disorders of brain (principal)
CPT/HCPCS: 70553; A9576

== ENCOUNTER → 2020-02-24 | Outpatient (CLI) | payer OTHER ==
[~2020-02-24] MED LIST changes: -PROHANCE 279.3MG/ML 5ML VIAL As Ordered ONE
--- NOTE | 2020-02-24 14:42 | REP ---
MRI CERVICAL SPINE WITHOUT AND WITH IV GADOLINIUM: HISTORY: Multiple sclerosis. Comparison cervical spine MRI study is from April 07, 2019. TECHNIQUE: Sagittal and axial T1- and T2-weighted scans are acquired in the usual fashion with and without fat saturation. Sequences include spin echo, turbo spin echo, and STIR imaging sequences. Gadolinium enhancement dose is 15 mL of intravenous ProHance. MRI FINDINGS: There is straightening and some reversal of the normal cervical lordosis. Cervical vertebral body heights are preserved. Alignment is otherwise normal. Cervical cord is normal in coarse, caliber and signal intensity on T1- and T2-weighted scans pre- and postcontrast. No intramedullary lesion is seen. Craniocervical junction is unremarkable. There is mild uncovertebral spurring on the left at the C4-5 disc level. No cervical disc herniation is seen. Other disc levels are unremarkable. No other foraminal encroachment is appreciated. Postcontrast study shows no abnormal contrast enhancement. Comparison with the May 07, 2019 study demonstrates no significant change. IMPRESSION: Minimal uncovertebral spurring on the left is C4-5. Straightening and reversal of the normal cervical lordosis. Otherwise unremarkable. No intramedullary lesion seen. Electronically Signed by Wolf Blanco MD 02/24/2020 05:08 P
--- NOTE | 2020-02-24 14:43 | REP ---
MRI THORACIC SPINE WITHOUT AND WITH IV GADOLINIUM: HISTORY: MS. The patient reports frequent headaches and weakness. Abnormal brain MRI. Gadolinium enhancement dose is 15 mL of intravenous ProHance. TECHNIQUE: Sagittal and axial T1- and T2-weighted scans are acquired in the usual fashion with and without fat saturation. Sequences include spin echo, turbo spin echo, and STIR imaging sequences. MRI FINDINGS: There is a minimal dextroconvex thoracic curvature. There is a 13 mm hemangioma noted incidentally in the right posterior aspect of the T6 vertebral body. No bony destructive lesion is seen. Cortical and medullary bone signal intensity are otherwise normal. There are Schmorl's nodes at the superior endplates of T5 and T6. Disc spaces are maintained. The thoracic spinal cord is normal in coarse, caliber, and signal intensity on T1- and T2-weighted scans. No intramedullary lesion is seen, the tip of the conus medullaris is noted at lower margins of T12. No abnormal gadolinium enhancement is appreciated either within the spinal cord or elsewhere. There is a right posterior disc bulge at the T2-T3 level. This does not contact the cord. No thoracic disc herniation is seen. No cord compressive lesion or foraminal lesion is seen. IMPRESSION: No evidence of intramedullary lesion. Hemangioma visualized incidentally at the T6 vertebral body. Electronically Signed by Wolf Blanco MD 02/24/2020 05:08 P
== END ==
LOC: M RAD 09:39
PROVIDERS: ATTEND Psychiatry & Neurology Neurology
DX: G35 Multiple sclerosis (principal)
CPT/HCPCS: 72156; 72157; A9576

== ENCOUNTER 2020-03-10 17:19 | Observation (INO) | payer OTHER ==
[~2020-03-10] VITALS: Ht 157.5 cm; Wt 83.6 kg
[~2020-03-10 17:19] MED LIST changes: -PROHANCE 279.3MG/ML 15ML VIAL As Ordered ONE
[2020-03-10] MEDS ORDERED: VITA50005 PO (17:36)
--- NOTE | 2020-03-10 18:07 | REPVR ---
PROCEDURE INFORMATION: Exam: CT Head Without Contrast Exam date and time: 03/10/2020 5:59 PM Age: 44 years old Clinical indication: Pain; Weakness, facial; Headache; Additional info: CVA TECHNIQUE: Imaging protocol: Computed tomography of the head without contrast. Radiation optimization: All CT scans at this facility use at least one of these dose optimization techniques: automated exposure control; mA and/or kV adjustment per patient size (includes targeted exams where dose is matched to clinical indication); or iterative reconstruction. Other technique: STROKE PROTOCOL was implemented. COMPARISON: CT Head without contrast 10/14/2018 7:42 PM FINDINGS: Brain: Normal. No hemorrhage. Unremarkable white matter. No mass effect. Ventricles: Normal. No ventriculomegaly. Bones/joints: Unremarkable. No acute fracture. Sinuses: Visualized sinuses are unremarkable. No fluid levels. Mastoid air cells: Visualized mastoid air cells are well aerated. Soft tissues: Unremarkable. IMPRESSION: No acute intracranial abnormality. ASSESSMENT: ASPECTS (Rosy Stroke Program Early CT Score) is 10. Electronically signed by: John Manriquez On 03/10/2020 18:07:07 PM
[2020-03-10 18:22] LABS: BASO # 0.1 10^3/uL (0.0-0.2); BASO % 0.6 % (0.0-1.0); EOS # 0.2 10^3/uL (0.0-0.5); EOS % 1.5 % (0.0-3.0); HEMATOCRIT 40.9 % (36.0-47.0); HEMOGLOBIN 13.5 g/dl (12.0-15.5); LYMPH # 3.6 10^3/uL (1.5-5.0); MEAN CORPUSCULAR HEMOGLOBIN 30.4 pg (27.0-33.0); MEAN CORPUSCULAR VOLUME 92.1 fl (80.0-96.0); MONO # 0.6 10^3/uL (0.0-0.8); NEUTROPHILS # 6.1 10^3/uL (1.5-8.5); NEUTROPHILS % 57.5 % (36.0-66.0); PLATELET COUNT, AUTOMATED 252 10^3/uL (150-450); RED BLOOD COUNT 4.44 10^6/uL (4.00-5.40); WHITE BLOOD COUNT 10.6 10^3/uL (4.0-10.0)
[2020-03-10] MEDS ORDERED: NS 1,000 ML IV SCH (18:26)
[2020-03-10] MEDS ORDERED: METOCLOPRAMIDE INJ 10MG/2ML VIAL (J2765 PER 1) IV ONE (18:30)
[2020-03-10 18:41] LABS: CK-MB VALUE MASS < 1.0 NG/ML (<3.6); CPK CREATINE PHOSPHOKINASE 78 U/L (26-192); INR 0.96; MB/CK RELATIVE INDEX 1.28 (< OR =4); PROTHROMBIN TIME 12.5 SECONDS (11.8-14.0); TROPONIN I < 0.02 NG/ML (< 0.10)
[2020-03-10 18:42] LABS: PARTIAL THROMBOPLASTIN TIME 29.5 SECONDS (25.0-38.4)
[2020-03-10] MEDS ORDERED: ASPIRIN 325 MG TAB PO ONE (18:45)
--- NOTE | 2020-03-10 18:53 | REP ---
Portable chest x-ray: Single view. History: CVA. Comparison chest x-ray: February 14, 2013. Findings: Monitoring electrodes overlie the chest. The lungs are symmetrically aerated and clear. The pleural angles are sharp. Heart size is normal. Pulmonary vasculature is not increased. No significant bony abnormality. Impression: No active disease. Electronically Signed by Wolf Blanco MD 03/10/2020 06:44 P
[2020-03-10 18:58] LABS: ALBUMIN 3.6 GM/DL (3.2-5.2); ALT/SGPT 23 U/L (12-78); BILIRUBIN,DIRECT < 0.1 MG/DL (0.0-0.2); BILIRUBIN,TOTAL 0.2 MG/DL (0.2-1.0); BLOOD UREA NITROGEN 12 MG/DL (7-18); CALCIUM LEVEL 8.9 MG/DL (8.5-10.1); CARBON DIOXIDE LEVEL 25 MEQ/L (21-32); CHLORIDE LEVEL 112 MEQ/L (98-107); CREATININE FOR GFR 0.82 MG/DL (0.55-1.30); GLOMERULAR FILTRATION RATE > 60.0 (>58); GLUCOSE, FASTING 88 MG/DL (70-100); MAGNESIUM LEVEL 1.8 MG/DL (1.8-2.4); POTASSIUM SERUM 4.3 MEQ/L (3.5-5.1); SODIUM LEVEL 143 MEQ/L (136-145); TOTAL PROTEIN 6.4 GM/DL (6.4-8.2)
--- NOTE | 2020-03-10 19:54 | REPVR ---
PROCEDURE INFORMATION: Exam: MR Angiogram Head Without Contrast, Arteries Exam date and time: 03/10/2020 6:39 PM Age: 44 years old Clinical indication: Weakness; Patient HX: HX of ms; Additional info: CVA TECHNIQUE: Imaging protocol: MR angiogram head without contrast. Exam focused on the arteries. COMPARISON: MRA BRAIN W/O CONTRAST 05/07/2019 7:25 PM FINDINGS: Anterior cerebral arteries: Intracranial segment is patent with no significant stenosis. No aneurysm. Right internal carotid artery: Intracranial segment is patent with no significant stenosis. No aneurysm. Right middle cerebral artery: No occlusion or significant stenosis. No aneurysm. Right posterior cerebral artery: No occlusion or significant stenosis. No aneurysm. Right vertebral artery: No occlusion or significant stenosis. No aneurysm. Left internal carotid artery: Intracranial segment is patent with no significant stenosis. No aneurysm. Left middle cerebral artery: No occlusion or significant stenosis. No aneurysm. Left posterior cerebral artery: No occlusion or significant stenosis. No aneurysm. Left vertebral artery: No occlusion or significant stenosis. No aneurysm. Basilar artery: No occlusion or significant stenosis. No aneurysm. IMPRESSION: No stenosis or occlusion. Electronically signed by: John Manriquez On 03/10/2020 19:54:02 PM
--- NOTE | 2020-03-10 19:58 | REPVR ---
PROCEDURE INFORMATION: Exam: MR Head Without Contrast Exam date and time: 03/10/2020 6:39 PM Age: 44 years old Clinical indication: Weakness, extremity; Left; Patient HX: HX of ms, PT states facial droop and arm weakness that is new today. ; Additional info: CVA TECHNIQUE: Imaging protocol: MR of the head without contrast. COMPARISON: MRI-Brain W/O FOLL BY WITH 02/20/2020 1:45 PM FINDINGS: Brain: Previously demonstrated punctate focus of mildly increased diffusion weighted signal in the left posterior parietal lobe is barely visible on the current study on diffusion-weighted images and not visible on the ADC map images. Furthermore is barely visible on FLAIR weighted and T2 weighted imaging suggesting either a small subacute to chronic lacunar infarct versus a small focus of gliosis. Brain otherwise unremarkable. Ventricles: Normal. No ventriculomegaly. Bones/joints: Unremarkable. Soft tissues: Unremarkable. Sinuses: Normal as visualized. No acute sinusitis. Mastoid air cells: Normal as visualized. No mastoid effusion. Orbits: Unremarkable. IMPRESSION: No acute infarcts demonstrated. Electronically signed by: John Manriquez On 03/10/2020 19:57:53 PM
[2020-03-10] MEDS ORDERED: MECL-86 PO (20:38)
[2020-03-10] MEDS ORDERED: TOPI100T9 PO (20:38)
[2020-03-10] MEDS ORDERED: tiZANidine 4 MG TAB PO PRN (21:30)
[2020-03-10] MEDS ORDERED: MECLIZINE 25 MG TABLET PO PRN (21:30)
[2020-03-10] MEDS ORDERED: ACETAMINOPHEN TAB 650MG DOSE (2X325MG) PO PRN (21:30)
[2020-03-10] MEDS: OMEPRAZOLE 20 MG CAP PO SCH (23:42)
[2020-03-10] MEDS: TOPIRAMATE (TopAMAX) 100 MG TAB PO SCH (23:42)
[2020-03-11 00:31] VITALS: BP 116/70
[2020-03-11] MEDS: rOPINIRole 1MG TAB PO SCH ×2 (00:55→08:55)
--- NOTE | 2020-03-11 05:43 | HPEPDOC ---
General Date of Admission March 10, 2020 at 21:16 Date of Service: March 10, 2020 Attending Physician: KATHY LEOS MD Chief Complaint The patient is a 44-year-old female admitted with a reason for visit of Headache, Right Arm Numbness, Veritgo. Source: Patient Exam Limitations: No limitations Timing/Duration: 4-6 hours Severity: Severe Associated Symptoms: Headaches History of Present Illness 44 yo W with a history of migraine, chart diagnosis of seizure disorder who follow with neurology in [place] with ongoing neurological workup for history of seizures, possible history of lacunar infarct, with ongoing migraine vs. MS vs. other disorder workup. She presented to the ED today with an acute bifrontal headache that had transient associated R facial palsy with subsequent subjective R arm parasthesias. While in the ED, the ED physician contacted the [facility] neurologist at [facility] who after an unremarkable CT and improvement of symptoms concluded that it was likely a complex migraine and there was no indication for lytic therapy. She subsequently had a brain MRI that did not show acute intracranial abnormalities and showed a previously noted small lacunar infarct vs. focus of gliosis. Her exam otherwise improved with r esolution of her facial palsy and improvement of R arm parasthesias. She is now being admitted to medicine for observation with plan to consult neurology in the morning. Home Medications Scheduled Ergocalciferol (Vitamin D2) (Vitamin D2) 50,000 Units Cap, 50,000 UNITS PO 1XWK, (Reported) SUNDAY @ HS Gabapentin (Gabapentin) 300 Mg Capsule, 600 MG PO QHS, (Reported) Omeprazole (Omeprazole) 40 Mg Cap, 40 MG PO BID, (Reported) Ropinirole HCl (Ropinirole HCl) 1 Mg Tablet, 1 MG PO TID, (Reported) Topiramate (Topiramate) 100 Mg Tablet, 100 MG PO BID, (Reported) Scheduled PRN Meclizine HCl (Meclizine HCl) 25 Mg Tablet, 25 MG PO TID PRN for DIZZINESS, (Reported) Tizanidine HCl (Tizanidine HCl) 2 Mg Tablet, 2 MG PO Q8H PRN for HEADACHE, (Reported) Allergies Coded Allergies: No Known Allergies (Unverified , 01/04/20) Past Medical History Medical History Migraine headaches History of a seizure history of MRI brain that showed a small lacunar infarct vs. gliosis with ongoing neurological workup c/f MS GERD with Dinero's esophagus Family History Significant Family History: Asthma, Cancer, COPD, Heart disease, Hypertension Social History * Smoker: current smoker Alcohol: Denies Drugs: denies Recent Travel/Sick Contacts: Denies: Recent travel, Recent sick contacts Psychosocial History: No pertinent psych hx A-FIB/CHADSVASC A-FIB History Current/History of A-Fib/PAF?: No Current PO Anticoag Therapy: No Age/Risk Factor Scoring CHADSVASC: CHADSVASC Response (Comments) Value Age Risk Factor Age < 65 years old 0 Gender Risk Factor Female 1 Hx of CHF No 0 Hx of HTN No 0 Hx of Stroke/TIA/or VTE Yes 2 Hx of Diabetes No 0 Hx of Vascular Disease No 0 Total 3 Treatment Treatment ordered: NONE Reason Anticoagulant not given: Not indicated/[id number] Review of Systems Constitutional: Denies: Chills, Fever, Night Sweats Eyes: Denies: Pain, Vision change ENT: Reports: Head Aches; Denies: Ear Pain, Dysphagia, Sinus Congestion, Post Nasal Drip, Sore Throat, Epistaxis Skin: Denies: Rash, Lesions, Breakdown Pulmonary: Denies: Dyspnea, Cough Cardiovascular: Denies: Chest Pain, Palpitations, Orthopnea, Paroxysmal Noc. Dyspnea, Lt Headedness Gastrointestinal: Denies: Nausea, Vomiting, Abdominal Pain, Diarrhea Genitourinary: Denies: Dysuria, Frequency, Incontinence, Retention Hematologic: Denies: Bruising, Bleeding Excessively Endocrine: Denies: Polydipsia, Polyphagia, Polyuria, Heat Intolerance, Cold Intolerance, Other Endocrine Sx Musculoskeletal: Denies: Neck Pain, Back Pain, Joint Pain, Muscle Pain, Spasms Neurological: Reports: Numbness (R arm parasthesias), Change in speech (had transient slurring at presentation to ED), Other Symptoms (R facial palsy that had resolved by the time I saw her and was present for 30min-1h); Denies: Weakness Psych: Reports: Mood Normal; Denies: Depression, Memory Issues Physical Examination General Exam: Positive: Alert, No Acute Distress Eye Exam: Positive: PERRLA, Conjunctiva & lids normal, EOMI; Negative: Sclera icteric ENT Exam: Positive: Atraumatic, Mucous membr. moist/pink, Pharynx Normal Neck Exam: Positive: Supple; Negative: JVD, thyromegaly Chest Exam: Positive: Clear to auscultation, Normal air movement Heart Exam: Positive: Rate Normal, Regular Rhythm, Normal S1, Normal S2; Negative: Murmurs, Rubs Telemetry: Positive: No significant arrhythmia Abdomen Exam: Positive: Normal bowel sounds, Soft; Negative: Tenderness, Hepatospenomegaly Extremity Exam: Positive: Normal pulses; Negative: Clubbing, Cyanosis, Edema Skin Exam: Positive: Nl turgor and temperature; Negative: Breakdown, Lesion Neuro Exam: Positive: Normal Speech, Strength at 5/5 X4 ext, Normal Tone, Sensa tion Intact, Cranial Nerves 3-12 NL, Reflexes 2+ Psych Exam: Positive: Mental status NL, Mood NL, Oriented x 3 Vital Signs Vital Signs Date Time Temp Pulse Resp B/P (MAP) Pulse Ox O2 Delivery O2 Flow Rate FiO2 03/11/20 00:31 98.2 64 18 116/70 (85) 97 Room Air Laboratory Data Labs 24H Laboratory Tests 2 03/10/20 18:11: Immature Granulocyte % (Auto) 0.4, Neutrophils (%) (Auto) 57.5, Lymphocytes (%) (Auto) 34.0, Monocytes (%) (Auto) 6.0H, Eosinophils (%) (Auto) 1.5, Basophils (%) (Auto) 0.6, Neutrophils # (Auto) 6.1, Lymphocytes # (Auto) 3.6, Monocytes # (Auto) 0.6, Eosinophils # (Auto) 0.2, Basophils # (Auto) 0.1, Nucleated Red Blood Cells % (auto) 0.0, Prothrombin Time 12.5, Prothromb Time International Ratio 0.96, Activated Partial Thromboplast Time 29.5, Anion Gap 6L, Glomerular Filtration Rate > 60.0, Calcium Level 8.9, Magnesium Level 1.8, Total Bilirubin 0.2, Direct Bilirubin < 0.1, Aspartate Amino Transf (AST/SGOT) 8, Alanine Aminotransferase (ALT/SGPT) 23, Alkaline Phosphatase 110, Total Creatine Kinase 78, Creatine Kinase MB < 1.0, Creatine Kinase MB Relative Index 1.28, Troponin I < 0.02, Total Protein 6.4, Albumin 3.6, Albumin/Globulin Ratio 1.29 03/10/20 18:16: Bedside Glucose (Misc Panel) 79 CBC/BMP Laboratory Tests 03/10/20 18:11 Assessment/Plan 44 yo W with a history of migraine, chart diagnosis of seizure disorder who follows with neurology in [place] with ongoing neurological workup for history of seizures, possible history of lacunar infarct, with ongoing migraine vs. MS vs. other neurological disorder workup who presented with a frontal DELEON and transient neurological deficits that resolved with improvement of the headache with stable brain imaging without acute intracranial abnormalities c/f a complex migraine. Complex migraine: -continue home topamax 100 BID, meclizine TID -s/p reglan, with good effect -MRI brain and CT head without acute findings, and exam resolved back to baseline -q4H neuro checks -neuro consult placed, Day team to call Dr. Ayala this AM RLS: -continue home requip TID -continue gabapentin QHS GERD with history of Dinero's: -continue omeprazole BID DVT ppx: lovenox SQ Diet: regular Plan / VTE VTE Prophylaxis Ordered?: Yes KATHY LEOS MD March 11, 2020 05:43
[2020-03-11 06:00] VITALS: BP 111/66
[2020-03-11 06:41] LABS: MEAN CORPUSCULAR HEMOGLOBIN 30.4 pg (27.0-33.0); MEAN CORPUSCULAR HGB CONC 33.3 g/dl (32.0-36.5); MEAN CORPUSCULAR VOLUME 91.3 fl (80.0-96.0); PLATELET COUNT, AUTOMATED 235 10^3/uL (150-450); RED BLOOD COUNT 4.27 10^6/uL (4.00-5.40); WHITE BLOOD COUNT 7.6 10^3/uL (4.0-10.0)
[2020-03-11 06:59] LABS: BLOOD UREA NITROGEN 10 MG/DL (7-18); CARBON DIOXIDE LEVEL 23 MEQ/L (21-32); CHLORIDE LEVEL 113 MEQ/L (98-107); CREATININE FOR GFR 0.58 MG/DL (0.55-1.30); GLOMERULAR FILTRATION RATE > 60.0 (>58); GLUCOSE, FASTING 90 MG/DL (70-100); MAGNESIUM LEVEL 1.9 MG/DL (1.8-2.4); POTASSIUM SERUM 3.8 MEQ/L (3.5-5.1); SODIUM LEVEL 142 MEQ/L (136-145)
[2020-03-11] MEDS: OMEPRAZOLE 20 MG CAP PO SCH (08:55)
[2020-03-11] MEDS: TOPIRAMATE (TopAMAX) 100 MG TAB PO SCH (08:56)
[2020-03-11] MEDS ORDERED: ENOXAPARIN 40MG/0.4ML SYRINGE (J1650 PER 10MG) SC SCH (09:00)
[2020-03-11] MEDS ORDERED: KETOROLAC 30 MG/ML 1ML VIAL IV SCH (10:00)
[2020-03-11] MEDS ORDERED: METOCLOPRAMIDE INJ 10MG/2ML VIAL (J2765 PER 1) IV SCH (12:00)
[2020-03-11] MEDS ORDERED: GABAPENTIN 300 MG CAP PO SCH (21:00)
--- NOTE | 2020-03-11 22:08 | ECGEPIP ---
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
--- NOTE | 2020-03-13 19:34 | DSES ---
DATE OF ADMISSION: 03/10/2020 DATE OF DISCHARGE: 03/11/2020 PRIMARY DISCHARGE DIAGNOSIS: 1. Complicated migraine with slight arm numbness and vertigo. DISCHARGE MEDICATIONS: - vitamin D 89448 units weekly - gabapentin 600 mg at bedtime (q.h.s.) - meclizine 25 mg three times a day as needed - Prilosec 40 mg twice a day - ropinirole 1 mg three times a day - tizanidine 2 mg every 8 hours as needed - Topamax 100 mg twice a day HOSPITAL COURSE: This is a 44-year-old female, presented to the emergency room with complaints of headache described as bifrontal and transient with right facial palsy and right arm paresthesias. CT of the head 03/10/2020 showed no acute intracranial abnormality. Magnetic Resonance Imaging (MRI) of the brain showed no acute infarct. Magnetic Resonance Angiography (MRA) has no stenosis or occlusion. The patient was admitted for pain control. She was restarted on her home dose of Topamax, given Toradol, Reglan, continued on meclizine for dizziness. She had symptomatic improvement on these medications and was subsequently discharged home. Temperature 98.5, pulse 60, respiratory rate 17, blood pressure 111/66, 97% on room air. GENERAL: Awake, alert, oriented times 3, answers questions appropriately. No nystagmus, horizontal or vertical on exam. Tongue is midline. Face is symmetric. No jugular venous distension (JVD), thyromegaly, cervical lymphadenopathy. Lungs are clear to auscultation. No wheezing, rales or rhonchi. HEART: S1, S2, sinus rhythm. ABDOMEN: Soft, nontender, nondistended. Positive bowel sounds. No rebound, guarding, obese abdomen. EXTREMITIES: No Cyanosis, clubbing or pitting edema. LABORATORY DATA: White count 7.6, hemoglobin 13, hematocrit 39, platelet count 235. Sodium 142, potassium 3.8, chloride 113, bicarbonate 23, BUN 10, creatinine 0.58, glucose of 90, magnesium of 1.9. IMAGING STUDY: Magnetic Resonance Imaging (MRI) and Magnetic Resonance Angiography (MRA) of the brain: No acute intracranial pathology. CT of the head: No intracranial abnormality. Chest x-ray: No active disease. Time spent on discharge: 30 minutes.
[2020-03-16] MEDS ORDERED: VITAMIN D 50,000 UNITS CAPSULE (ERGOCALCIFEROL 1.25MG) PO SCH (21:00)
== END 2020-03-11 11:56 | disposition home or self-care (01) ==
LOC: M ED 17:19 → M ED INP 21:16 → ENRESERV 23:34 → M MSPAV 03-11 00:31
PROVIDERS: ADMIT Internal Medicine; ATTEND General Practice
DX: G43.109 Migraine with aura, not intractable, without status migrainosus (principal); K22.70 Barrett's esophagus without dysplasia; K21.9 Gastro-esophageal reflux disease without esophagitis; G25.81 Restless legs syndrome; G40.909 Epilepsy, unspecified, not intractable, without status epilepticus; E55.9 Vitamin D deficiency, unspecified; M54.2 Cervicalgia; F17.210 Nicotine dependence, cigarettes, uncomplicated; Z79.899 Other long term (current) drug therapy
CPT/HCPCS: 36415; 70450; 70544; 70551; 71045; 80047; 80048; 80076; 82550; 82553; 83735; 85025; 85027; 85610; 85730; 86850; 86900; 86901; 93005; 93041; 94760; 96361; 96372; 96374; 96375; 97161; 97165; 99285; J1650; J1885; J2765

== ENCOUNTER → 2020-03-19 | Outpatient (CLI) | payer OTHER ==
[~2020-03-19] MED LIST changes: +MECL-86 PO; +TOPI100T9 PO; +VITA50005 PO
--- NOTE | 2020-03-19 10:25 | ECGEPIP ---
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
--- NOTE | 2020-03-22 10:32 | ECHO ---
DATE OF PROCEDURE: 03/19/2020 REFERRING PROVIDER: Dr. Cain Clements. REASON FOR STUDY: Cerebral infarction, unspecified. 2D MEASUREMENTS: IVS -1.0 cm LV - 4.4 cm LVPW - 1.0 cm LA - 3.1 cm Aorta - 3.1 cm IVC - 1.3 cm DOPPLER MEASUREMENTS: Peak velocity across the aortic valve - 1.1 meters per second Peak velocity across the LVOT - 0.84 meters per second. Mitral E - 0.6, Mitral A - 0.8 with a ratio of 0.7. Maximum tricuspid valve velocity - 2.1 meters per second. 2D COMMENTS: 1. Normal left ventricular size, wall thickness, and normal global left ventricular systolic function. The estimated left ventricular systolic ejection fraction is 60-65%. 2. Normal left atrium. Normal right atrium and right ventricle. 3. The atrial septum appeared to be normal without evidence of defect or shunt. 4. Normal aortic root. 5. No pericardial effusion seen. 6. The aortic valve, mitral valve, tricuspid valve, and pulmonic valve appeared to be normal. The proximal pulmonary artery branches also appear to be normal. 7. The inferior vena cava was normal in size, central venous pressure is most likely normal. DOPPLER: It detects mild mitral regurgitation, trace tricuspid regurgitation, trace pulmonic regurgitation. The calculated pulmonary artery systolic pressure was normal, less than 30 mmHg. Abnormal relaxation pattern was noted across the mitral valve leaflets as well as the mitral valve annulus consistent with features of grade 1 left ventricular diastolic dysfunction. IMPRESSION: 1. Normal global left ventricular systolic function. There are some features of left ventricular diastolic dysfunction manifested by abnormal relaxation. 2. Mild mitral regurgitation. 3. Trace tricuspid regurgitation with a normal calculated pulmonary artery systolic pressure. 4. Trace pulmonic regurgitation. MTDD
== END ==
LOC: M CARPUL 08:03
PROVIDERS: ATTEND Psychiatry & Neurology Neurology
DX: I63.9 Cerebral infarction, unspecified (principal)

== ENCOUNTER → 2020-06-23 | Outpatient (CLI) | payer OTHER | LOC: M LABSMTC 09:47 | PROVIDERS: ATTEND Nurse Practitioner | DX: Z03.818 Encounter for observation for suspected exposure to other biological agents ruled out (principal); Z11.59 Encounter for screening for other viral diseases | CPT/HCPCS: C9803; U0003 ==

== ENCOUNTER → 2020-09-30 | Outpatient (CLI) | payer OTHER ==
[~2020-09-30] MED LIST changes: +ASPI-117; +ATOR40TA75; +FAMO40TA3; +PROP10TA56
== END ==
LOC: M LABSMTC 12:00
PROVIDERS: ATTEND Anesthesiology
DX: Z01.812 Encounter for preprocedural laboratory examination (principal); Z20.828 Contact with and (suspected) exposure to other viral communicable diseases

== ENCOUNTER 2020-10-05 10:22 | Day surgery (SDC) | payer OTHER ==
[~2020-10-05] VITALS: Ht 157.5 cm; Wt 86.6 kg
[2020-10-05] MEDS ORDERED: LIDOCAINE 2% 100MG/5ML SDV (FOR ANES.) As Ordered ONE (10:34)
[2020-10-05] MEDS ORDERED: propofoL 200 MG/20 ML VIAL As Ordered ONE (10:34)
[2020-10-05] MEDS: NS 1,000 ML IV ONE (11:14)
[2020-10-05] MEDS ORDERED: fentaNYL 100 MCG/2 ML INJECTION (J3010) As Ordered ONE (12:17)
--- NOTE | 2020-10-05 12:36 | ROOR ---
Patient Name: Holly Briceño Procedure Date: 10/05/2020 12:10 PM Date of : 1975 Age: 45 Room: [facility] Gender: Female Note Status: Finalized Procedure: Upper GI endoscopy Indications: Follow-up of Dinero's esophagus Providers: Lemuel HOLM MD Referring MD: Maria De Jesus Cross NP Requesting Provider: Medicines: Monitored Anesthesia Care Complications: No immediate complications. Procedure: Pre-Anesthesia Assessment: - The heart rate, respiratory rate, oxygen saturations, blood pressure, adequacy of pulmonary ventilation, and response to care were monitored throughout the procedure. The Endoscope was introduced through the mouth, and advanced to the second part of duodenum. The upper GI endoscopy was accomplished without difficulty. The patient tolerated the procedure well. Findings: There were esophageal mucosal changes secondary to established short-segment Dinero's disease. The maximum longitudinal extent of these mucosal changes was 2 cm in length from 35 to 37 cm from incisors. Appearance is smooth, no nodularity. Mucosa was biopsied with a cold forceps for histology randomly x 10 biopsies. One specimen bottle was sent to pathology. The examination was otherwise normal. The exam was otherwise without abnormality. Impression: - Esophageal mucosal changes secondary to established short-segment Dinero's disease, classified as Dinero's stage C2-M2 per Sherman criteria. Biopsied. - The examination was otherwise normal. Recommendation: - Continue present medications. - Repeat upper endoscopy in 3 years for surveillance. Procedure Code(s): --- Professional --- 40145, Esophagogastroduodenoscopy, flexible, transoral; with biopsy, single or multiple Diagnosis Code(s): --- Professional --- K22.70, Dinero's esophagus without dysplasia CPT copyright 2019 [employer]. All rights reserved. The codes documented in this report are preliminary and upon insulating machine operator review may be revised to meet current compliance requirements. Lemuel Holm MD Lemuel HOLM MD 10/05/2020 12:35:39 PM Electronically signed by Lemuel HOLM MD Number of Addenda: 0 Note Initiated On: 10/05/2020 12:10 PM Estimated Blood Loss: Estimated blood loss: none.
[2020-10-05 13:00] VITALS: BP 138/70
== END 2020-10-05 13:05 | disposition home or self-care (01) ==
LOC: M OPP 10:22
PROVIDERS: ATTEND Internal Medicine Gastroenterology
DX: K22.70 Barrett's esophagus without dysplasia (principal); R12 Heartburn; G40.919 Epilepsy, unspecified, intractable, without status epilepticus; G25.81 Restless legs syndrome; F17.210 Nicotine dependence, cigarettes, uncomplicated; Z86.79 Personal history of other diseases of the circulatory system; Z79.82 Long term (current) use of aspirin; Z79.899 Other long term (current) drug therapy
CPT/HCPCS: 43239; 88305; J3010

== ENCOUNTER → 2020-10-20 | Outpatient (CLI) | payer OTHER ==
[~2020-10-20] MED LIST changes: +PROHANCE 279.3MG/ML 15ML VIAL As Ordered ONE; +PROHANCE 279.3MG/ML 5ML VIAL As Ordered ONE
--- NOTE | 2020-10-20 22:21 | REPVR ---
PROCEDURE INFORMATION: Exam: MR Thoracic Spine Without and With Contrast Exam date and time: 10/20/2020 6:57 PM Age: 45 years old Clinical indication: Patient HX: Weakness, HX CVA; Additional info: Demylinating changes TECHNIQUE: Imaging protocol: Multiplanar magnetic resonance images of the thoracic spine without and with intravenous contrast. Contrast material: PROHANCE; Contrast volume: 17 ml; Contrast route: INTRAVENOUS (IV); COMPARISON: MRI-T SPINE W/O FOLL WITH CON 02/24/2020 9:58 AM FINDINGS: Vertebrae: Small Schmorl's nodes demonstrated at the superior endplates of T3 through T7. Intraosseous lipoma posterior aspect of T7 vertebral body. Spinal cord: Normal signal. No cord compression. Discs/Spinal canal/Neural foramina: No significant disc disease. No significant spinal canal stenosis. Soft tissues: Unremarkable. IMPRESSION: 1. No demyelinating foci demonstrated within the spinal cord. 2. Mild degenerative changes. Electronically signed by: John Manriquez On 10/20/2020 22:20:49 PM
== END ==
LOC: M RAD 17:21
PROVIDERS: ATTEND Psychiatry & Neurology Neurology
DX: G37.9 Demyelinating disease of central nervous system, unspecified (principal)
CPT/HCPCS: 72157; A9576

== ENCOUNTER → 2020-10-27 | Outpatient (CLI) | payer OTHER ==
--- NOTE | 2020-10-27 18:36 | REPVR ---
PROCEDURE INFORMATION: Exam: MR Cervical Spine Without and With Contrast Exam date and time: 10/27/2020 5:45 PM Age: 45 years old Clinical indication: Condition or disease; Other: M/s; Patient HX: Demylmiquel kumari TECHNIQUE: Imaging protocol: Multiplanar magnetic resonance images of the cervical spine without and with intravenous contrast. Contrast material: PROHANCE; Contrast volume: 17 ml; Contrast route: INTRAVENOUS (IV); COMPARISON: MRI-C SPINE W/O FOLL BY WITH 02/24/2020 9:58 AM FINDINGS: Vertebrae: Unremarkable. Spinal cord: Normal signal. No cord compression. C2-C3: No significant disc disease. No significant spinal stenosis. C3-C4: No significant disc disease. No significant spinal stenosis. C4-C5: No significant disc disease. No significant spinal stenosis. C5-C6: Broad-based posterior disc protrusion at C5-C6 effaces the ventral subarachnoid space without cord impingement. There is mild bilateral foraminal narrowing. C6-C7: No significant disc disease. No significant spinal stenosis. C7-T1: No significant disc disease. No significant spinal stenosis. Vertebral arteries: Expected flow voids in the vertebral arteries. Soft tissues: Unremarkable. IMPRESSION: 1. No acute findings. No evidence of demyelinating disease. 2. Broad posterior disc protrusion C5-C6 without neural impingement. Electronically signed by: John Manriquez On 10/27/2020 18:36:39 PM
--- NOTE | 2020-10-27 18:54 | REPVR ---
PROCEDURE INFORMATION: Exam: MR Head Without and With Contrast Exam date and time: 10/27/2020 5:45 PM Age: 45 years old Clinical indication: Condition or disease; Multiple sclerosis; Patient HX: Demylinating chages TECHNIQUE: Imaging protocol: MR of the head without and with intravenous contrast. 3D rendering (Not supervised by radiologist): MIP and/or 3D reconstructed images were created by the technologist. Contrast material: PROHANCE; Contrast volume: 17 ml; Contrast route: INTRAVENOUS (IV); COMPARISON: MRI-Brain without Contrast 03/10/2020 7:11 PM FINDINGS: Brain: Small focus of abnormal signal, T1 dark T2 bright demonstrated in a gyrus in the posterior left parietal lobe, stable in comparison to the prior study. There is no enhancement demonstrated. Finding may represent a non active demyelinating plaque. Otherwise unremarkable. Cerebral ventricles: Normal. No ventriculomegaly. Bones/joints: Unremarkable. Paranasal sinuses: Normal as visualized. No acute sinusitis. Mastoid air cells: Normal as visualized. No mastoid effusion. Orbits: Unremarkable. Soft tissues: Unremarkable. IMPRESSION: 1. Stable abnormal focus a gyrus in the left parietal lobe. Finding may represent a non active demyelinating plaque. 2. Otherwise unremarkable. Electronically signed by: John Manriquez On 10/27/2020 18:54:16 PM
== END ==
LOC: M RAD 16:17
PROVIDERS: ATTEND Psychiatry & Neurology Neurology
DX: G37.9 Demyelinating disease of central nervous system, unspecified (principal)
CPT/HCPCS: 70553; 72156; A9576

== ENCOUNTER → 2020-10-29 | Outpatient (CLI) | payer OTHER ==
[~2020-10-29] MED LIST changes: -PROHANCE 279.3MG/ML 15ML VIAL As Ordered ONE; -PROHANCE 279.3MG/ML 5ML VIAL As Ordered ONE
== END ==
LOC: M LAB 08:10
PROVIDERS: ATTEND Psychiatry & Neurology Neurology
DX: G40.409 Other generalized epilepsy and epileptic syndromes, not intractable, without status epilepticus (principal)

== ENCOUNTER → 2020-11-16 | Outpatient (CLI) | payer SELFPAY ==
[~2020-11-16] MED LIST changes: +GABA-282 PO; -GABA-843 PO
== END ==
LOC: M LABSMTC 13:55
PROVIDERS: ATTEND Pediatrics
DX: Z20.822 Contact with and (suspected) exposure to COVID-19 (principal)

== ENCOUNTER → 2021-09-22 | Outpatient (CLI) | payer OTHER ==
[~2021-09-22] MED LIST changes: +ERGO500029 PO; -IBUP200T45 PO; +IBUP200T46 PO; +OMEP40CA4 PO; -OMEP40CA97 PO; -VITA50005 PO
[2021-09-22 10:04] LABS: HEMOGLOBIN A1c 5.8 %
[2021-09-23 09:02] LABS: HEPATITIS B SURFACE ANTIBODY NEGATIVE (POSITIVE)
[2021-09-23 09:41] LABS: HEPATITIS C VIRUS ABY INDEX 0.1 INDEX (<0.8)
== END ==
LOC: M LAB 08:44
PROVIDERS: ATTEND Psychiatry & Neurology Neurology
DX: G37.9 Demyelinating disease of central nervous system, unspecified (principal)

== ENCOUNTER → 2021-11-08 | Outpatient (CLI) | payer OTHER | LOC: M RAD 07:17 | PROVIDERS: ATTEND Student in an Organized Health Care Education/Training Program | DX: N31.9 Neuromuscular dysfunction of bladder, unspecified (principal) ==

== ENCOUNTER 2022-04-13 19:55 | Emergency (ER) | payer OTHER ==
[~2022-04-13] VITALS: Ht 160 cm; Wt 100.0 kg
[2022-04-13 22:09] VITALS: BP 123/65
== END 2022-04-13 22:11 | disposition home or self-care (01) ==
LOC: M ED 19:55
DX: R22.42 Localized swelling, mass and lump, left lower limb (principal); M79.662 Pain in left lower leg; M71.22 Synovial cyst of popliteal space [Baker], left knee; Z79.82 Long term (current) use of aspirin; Z79.899 Other long term (current) drug therapy

== ENCOUNTER → 2022-04-27 | Outpatient (CLI) | payer OTHER ==
[~2022-04-27] MED LIST changes: +LIDVISCBTL SSP; +PSEU120T19 PO
== END ==
LOC: M SOG 07:58
PROVIDERS: ATTEND Orthopaedic Surgery Adult Reconstructive Orthopaedic Surgery
DX: M25.562 Pain in left knee (principal)

== ENCOUNTER 2022-04-29 19:29 | Emergency (ER) | payer OTHER ==
[~2022-04-29] VITALS: Ht 160 cm; Wt 102.1 kg
[~2022-04-29 19:29] MED LIST changes: -LIDVISCBTL SSP; -PSEU120T19 PO
[2022-04-29 19:30] VITALS: BP 149/76
[2022-04-29 22:00] LABS: BASO # 0.1 10^3/uL (0.0-0.2); BASO % 0.4 % (0.0-1.0); EOS # 0.1 10^3/uL (0.0-0.5); EOS % 0.6 % (0.0-3.0); HEMATOCRIT 42.7 % (36.0-47.0); HEMOGLOBIN 13.4 g/dl (12.0-15.5); LYMPH # 4.1 10^3/uL (1.5-5.0); LYMPH % 25.2 % (24.0-44.0); MEAN CORPUSCULAR HEMOGLOBIN 28.3 pg (27.0-33.0); MEAN CORPUSCULAR HGB CONC 31.4 g/dl (32.0-36.5); MEAN CORPUSCULAR VOLUME 90.1 fl (80.0-96.0); MONO # 1.4 10^3/uL (0.0-0.8); MONO % 8.7 % (2.0-8.0); NEUTROPHILS # 10.4 10^3/uL (1.5-8.5); NEUTROPHILS % 64.6 % (36.0-66.0); PLATELET COUNT, AUTOMATED 231 10^3/uL (150-450); RED BLOOD COUNT 4.74 10^6/uL (4.00-5.40); WHITE BLOOD COUNT 16.2 10^3/uL (4.0-10.0)
[2022-04-29 22:45] LABS: MONO SCRN NEGATIVE (NEGATIVE)
[2022-04-29] MEDS ORDERED: LIDOCAINE VISCOUS 2% SOLN 15ML UDC SS ONE (23:20)
[2022-04-29] MEDS ORDERED: KETOROLAC 30 MG/ML 1ML VIAL IM ONE (23:20)
[2022-04-29] MEDS ORDERED: LIDVISCBTL SSP (23:24)
== END 2022-04-29 23:38 | disposition home or self-care (01) ==
LOC: M ED 19:29
DX: J02.9 Acute pharyngitis, unspecified (principal); M79.10 Myalgia, unspecified site; G43.909 Migraine, unspecified, not intractable, without status migrainosus; K21.9 Gastro-esophageal reflux disease without esophagitis; K22.70 Barrett's esophagus without dysplasia; K76.89 Other specified diseases of liver; Z87.09 Personal history of other diseases of the respiratory system; Z87.442 Personal history of urinary calculi; Z79.899 Other long term (current) drug therapy; Z79.82 Long term (current) use of aspirin
CPT/HCPCS: 36415; 85025; 86308; 87486; 87581; 87633; 87798; 87880; 96372; 99282; J1885

== ENCOUNTER 2022-05-01 12:48 | Emergency (ER) | payer OTHER ==
[~2022-05-01] VITALS: Ht 160 cm; Wt 102.6 kg
[~2022-05-01 12:48] MED LIST changes: +LIDVISCBTL SSP
[2022-05-01] MEDS ORDERED: IBUPROFEN 800 MG TAB PO ONE (14:45)
[2022-05-01] MEDS ORDERED: PSEU120T19 PO (14:47)
[2022-05-01 15:05] VITALS: BP 134/73
== END 2022-05-01 15:08 | disposition home or self-care (01) ==
LOC: M ED 12:48
DX: J02.9 Acute pharyngitis, unspecified (principal); R51.9 Headache, unspecified; R09.81 Nasal congestion; I10 Essential (primary) hypertension; E78.5 Hyperlipidemia, unspecified; G40.909 Epilepsy, unspecified, not intractable, without status epilepticus; G43.909 Migraine, unspecified, not intractable, without status migrainosus; K21.9 Gastro-esophageal reflux disease without esophagitis; K22.70 Barrett's esophagus without dysplasia; Z79.899 Other long term (current) drug therapy; Z79.82 Long term (current) use of aspirin

== ENCOUNTER 2022-05-03 23:41 | Emergency (ER) | payer OTHER ==
[~2022-05-03] VITALS: Ht 160 cm; Wt 101.7 kg
[~2022-05-03 23:41] MED LIST changes: +PSEU120T19 PO
[2022-05-03 23:43] VITALS: BP 133/76
== END 2022-05-04 00:28 | disposition left against medical advice (07) ==
LOC: M ED 23:41
DX: Z53.29 Procedure and treatment not carried out because of patient's decision for other reasons (principal)

== ENCOUNTER → 2022-05-04 | Outpatient (CLI) | payer OTHER ==
[2022-05-04 12:58] LABS: BASO % 0.4 % (0.0-1.0); EOS # 0.2 10^3/uL (0.0-0.5); EOS % 2.4 % (0.0-3.0); HEMATOCRIT 41.6 % (36.0-47.0); LYMPH % 20.3 % (24.0-44.0); MEAN CORPUSCULAR HEMOGLOBIN 28.4 pg (27.0-33.0); MEAN CORPUSCULAR HGB CONC 31.3 g/dl (32.0-36.5); MONO % 10.7 % (2.0-8.0); NEUTROPHILS # 6.4 10^3/uL (1.5-8.5); NEUTROPHILS % 65.8 % (36.0-66.0); PLATELET COUNT, AUTOMATED 227 10^3/uL (150-450); RED BLOOD COUNT 4.57 10^6/uL (4.00-5.40); WHITE BLOOD COUNT 9.7 10^3/uL (4.0-10.0)
[2022-05-04 13:26] LABS: ALBUMIN 3.3 GM/DL (3.2-5.2); ALT/SGPT 28 U/L (12-78); BILIRUBIN,TOTAL 0.7 MG/DL (0.2-1.0); BLOOD UREA NITROGEN 9 MG/DL (7-18); CARBON DIOXIDE LEVEL 26 MEQ/L (21-32); CHLORIDE LEVEL 106 MEQ/L (98-107); CREATININE FOR GFR 0.85 MG/DL (0.55-1.30); GLOMERULAR FILTRATION RATE > 60.0 (>58); GLUCOSE, FASTING 126 MG/DL (70-100); POTASSIUM SERUM 4.2 MEQ/L (3.5-5.1); SODIUM LEVEL 136 MEQ/L (136-145); TOTAL PROTEIN 6.6 GM/DL (6.4-8.2)
== END ==
LOC: M WUC 09:39
PROVIDERS: ATTEND Physician Assistant
DX: R50.9 Fever, unspecified (principal); R06.02 Shortness of breath; J20.9 Acute bronchitis, unspecified

== ENCOUNTER 2022-05-22 20:24 | Emergency (ER) | payer OTHER ==
[~2022-05-22] VITALS: Ht 157.5 cm; Wt 100.0 kg
[2022-05-22 20:24] VITALS: BP 129/82
== END 2022-05-22 23:45 | disposition left against medical advice (07) ==
LOC: M ED 20:24
DX: Z53.29 Procedure and treatment not carried out because of patient's decision for other reasons (principal)

== ENCOUNTER → 2022-08-14 | Outpatient (CLI) | payer OTHER | LOC: M PAIN 08:15 | PROVIDERS: ATTEND Nurse Practitioner Family | DX: M54.81 Occipital neuralgia (principal); G40.409 Other generalized epilepsy and epileptic syndromes, not intractable, without status epilepticus; G43.909 Migraine, unspecified, not intractable, without status migrainosus; N31.9 Neuromuscular dysfunction of bladder, unspecified; K21.9 Gastro-esophageal reflux disease without esophagitis; K22.70 Barrett's esophagus without dysplasia; E78.5 Hyperlipidemia, unspecified; M54.2 Cervicalgia; E66.9 Obesity, unspecified; E55.9 Vitamin D deficiency, unspecified; E53.8 Deficiency of other specified B group vitamins; Z86.73 Personal history of transient ischemic attack (TIA), and cerebral infarction without residual deficits; Z87.442 Personal history of urinary calculi; Z87.891 Personal history of nicotine dependence; Z68.41 Body mass index [BMI] 40.0-44.9, adult; Z79.82 Long term (current) use of aspirin; Z79.899 Other long term (current) drug therapy ==

== ENCOUNTER → 2022-12-12 | Outpatient (CLI) | payer OTHER ==
[2022-12-12 15:15] LABS: ALBUMIN 3.5 G/DL (3.2-5.2); ALKALINE PHOSPHATASE 215 U/L (46-116); ALT/SGPT 40 U/L (7.0-40); AST/SGOT 14 U/L (<34); BILIRUBIN,TOTAL 0.3 MG/DL (0.3-1.2); BLOOD UREA NITROGEN 17 MG/DL (9-23); CALCIUM LEVEL 9.3 MG/DL (8.5-10.1); CARBON DIOXIDE LEVEL 26 MMOL/L (20-31); CHLORIDE LEVEL 109 MMOL/L (98-107); CHOLESTEROL LEVEL 159 MG/DL (<200); CHOLESTEROL RISK RATIO 3.22 (<5); CREATININE FOR GFR 0.78 MG/DL (0.55-1.30); GLOMERULAR FILTRATION RATE > 60.0 (>58); GLUCOSE, FASTING 120 MG/DL (60-100); HDL CHOLESTEROL 49.3 MG/DL (>40); LDL CHOLESTEROL 75.1 MG/DL (<100); NON-HDL-C 110 MG/DL; POTASSIUM SERUM 4.6 MMOL/L (3.5-5.1); SODIUM LEVEL 140 MMOL/L (136-145); TOTAL PROTEIN 6.6 G/DL (5.7-8.2); TRIGLYCERIDES LEVEL 173 MG/DL (<150)
[2022-12-12 15:20] LABS: THYROID STIMULATING HORMONE 2.519 uIU/ML (0.55-4.78)
[2022-12-12 15:22] LABS: TOTAL 25(OH) VITAMIN D 17.6 NG/ML (20.0-100.0)
[2022-12-12 15:23] LABS: VITAMIN B12 LEVEL 326 PG/ML (211-911)
== END ==
LOC: M PLALAB 10:13
PROVIDERS: ATTEND Nurse Practitioner Adult Health
DX: E78.2 Mixed hyperlipidemia (principal); E55.9 Vitamin D deficiency, unspecified; E66.9 Obesity, unspecified; Z13.29 Encounter for screening for other suspected endocrine disorder; E53.8 Deficiency of other specified B group vitamins

== ENCOUNTER → 2023-10-03 | Outpatient (CLI) | payer OTHER ==
[~2023-10-03] MED LIST changes: +MECL-209 PO; -MECL1TAB31 PO; +PROHANCE 279.3MG/ML 15ML VIAL As Ordered ONE; +PROHANCE 279.3MG/ML 5ML VIAL As Ordered ONE; -ROPI1TAB3 PO; +ROPI1TAB73 PO
== END ==
LOC: M RAD 12:37
PROVIDERS: ATTEND Psychiatry & Neurology Neurology
DX: G37.9 Demyelinating disease of central nervous system, unspecified (principal)
CPT/HCPCS: 70553; A9576

== ENCOUNTER → 2024-01-29 | Outpatient (CLI) | payer OTHER ==
[~2024-01-29] MED LIST changes: -PROHANCE 279.3MG/ML 15ML VIAL As Ordered ONE; -PROHANCE 279.3MG/ML 5ML VIAL As Ordered ONE
[2024-01-29 14:30] LABS: ALBUMIN 3.9 G/DL (3.2-5.2); ALKALINE PHOSPHATASE 173 U/L (46-116); ALT/SGPT 98 U/L (7.0-40); AST/SGOT 87 U/L (<34); BILIRUBIN,TOTAL 0.4 MG/DL (0.3-1.2); BLOOD UREA NITROGEN 9 MG/DL (9-23); CALCIUM LEVEL 9.1 MG/DL (8.5-10.1); CARBON DIOXIDE LEVEL 27 MMOL/L (20-31); CHLORIDE LEVEL 107 MMOL/L (98-107); CREATININE FOR GFR 0.63 MG/DL (0.55-1.30); GLOMERULAR FILTRATION RATE > 60.0 (>58); GLUCOSE, FASTING 104 MG/DL (60-100); POTASSIUM SERUM 3.9 MMOL/L (3.5-5.1); SODIUM LEVEL 145 MMOL/L (136-145); TOTAL PROTEIN 6.6 G/DL (5.7-8.2)
== END ==
LOC: M PLALAB 09:58
PROVIDERS: ATTEND Nurse Practitioner Adult Health
DX: R74.8 Abnormal levels of other serum enzymes (principal)

== ENCOUNTER → 2024-03-14 | Outpatient (CLI) | payer OTHER | LOC: M WHC 07:32 | PROVIDERS: ATTEND Nurse Practitioner Adult Health | DX: R74.8 Abnormal levels of other serum enzymes (principal) ==

== ENCOUNTER → 2024-12-04 | Outpatient (CLI) | payer OTHER ==
[~2024-12-04] MED LIST changes: +GABA-1172 PO; -GABA-282 PO; +PROHANCE 279.3MG/ML 15ML VIAL ONE; +PROHANCE 279.3MG/ML 5ML VIAL ONE
== END ==
LOC: M PLAIMG 08:41
PROVIDERS: ATTEND Psychiatry & Neurology Neurology
DX: G43.909 Migraine, unspecified, not intractable, without status migrainosus (principal)

== ENCOUNTER → 2025-07-01 | Outpatient (CLI) | payer OTHER ==
[~2025-07-01] MED LIST changes: -IBUP-1022 PO; +IBUP600T42 PO; -PROHANCE 279.3MG/ML 15ML VIAL ONE; -PROHANCE 279.3MG/ML 5ML VIAL ONE; +TOPI-257 PO; -TOPI100T9 PO
[2025-07-01 17:37] LABS: ALT/SGPT 203 U/L (7.0-40); AST/SGOT 180 U/L (<34); CALCIUM LEVEL 10.0 MG/DL (8.5-10.1); CARBON DIOXIDE LEVEL 26 MMOL/L (20-31); CHLORIDE LEVEL 105 MMOL/L (98-107); CHOLESTEROL LEVEL 248 MG/DL (<200); CHOLESTEROL RISK RATIO 5.67 (<5); CREATININE FOR GFR 0.67 MG/DL (0.55-1.30); GLOMERULAR FILTRATION RATE > 90.0 (>51); LDL CHOLESTEROL 159.5 MG/DL (<100); NON-HDL-C 204.3 MG/DL; POTASSIUM SERUM 4.1 MMOL/L (3.5-5.1); SODIUM LEVEL 144 MMOL/L (136-145); TRIGLYCERIDES LEVEL 224 MG/DL (<150)
[2025-07-01 18:18] LABS: ESTIMATED AVERAGE GLUCOSE 223.0 MG/DL (60-110)
== END ==
LOC: M PLALAB 12:22
PROVIDERS: ATTEND Nurse Practitioner Adult Health
DX: R74.8 Abnormal levels of other serum enzymes (principal); R73.9 Hyperglycemia, unspecified; E78.2 Mixed hyperlipidemia

== ENCOUNTER → 2025-10-26 | Outpatient (CLI) | payer OTHER ==
[~2025-10-26] MED LIST changes: +GADOXETATE DISODIUM 2.5 MMOL/10 ML VIAL ONE
== END ==
LOC: M PLAIMG 08:39
PROVIDERS: ATTEND Internal Medicine Gastroenterology
DX: K76.9 Liver disease, unspecified (principal)
CPT/HCPCS: 74183; A9581